=== PATIENT | male | born 1955 | race Caucasian/White ===

== ENCOUNTER 2024-04-21 05:37 | Emergency (ER) | payer MEDICARE, SELFPAY ==
[2024-04-21 05:43] VITALS: BP 126/76; PULSE 67; TEMP 36.4; O2SAT 98; BMI 34.6
--- NOTE | 2024-04-21 05:54 | XR_ITS ---
The [address] [address] Patient Name: GODFREY BLACK MRN: [id number] date: 1955 Sex: M Assigned Patient Location: ED.MAIN Current Patient Location: ER Accession/Order Number: [id number] Exam Date: 04/21/2024 06:13 Report Date: 04/21/2024 06:32 At the request of: RISHABH EDWARDS Procedure: XR chest 1V EXAMINATION: XR chest 1V HISTORY: Intermittent dizziness COMPARISON: No relevant comparison available. FINDINGS: LUNGS: Trace stranding within lateral left lung base. VASCULATURE: No increased pulmonary vasculature. PLEURA: No pneumothorax, effusion, or pleural thickening. CARDIAC: No cardiomegaly or cardiac silhouette abnormality. MEDIASTINUM: No visible mass or adenopathy. BONES: No fracture or visible bone lesion. OTHER: Negative. XR/XR chest 1V IMPRESSION: 1. Trace amount of left basilar atelectasis or possibly infiltrates. Electronically authenticated by: VERNELL LUQUE Date: 04/21/2024 06:32
--- NOTE | 2024-04-21 05:54 | ECG_ITS ---
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
--- NOTE | 2024-04-21 05:54 | CT_ITS ---
The [address] [address] Patient Name: GODFREY BLACK MRN: [id number] date: 1955 Sex: M Assigned Patient Location: ED.MAIN Current Patient Location: ER Accession/Order Number: [id number] Exam Date: 04/21/2024 06:13 Report Date: 04/21/2024 06:33 At the request of: RISHABH EDWARDS Procedure: CT head/brain wo con EXAM: CT head/brain wo con HISTORY: Intermittent dizziness COMPARISON: None. TECHNIQUE: Noncontrast axial CT images through the head were obtained with coronal and sagittal reformats. Dose reduction techniques were achieved by using automated exposure control and/or adjustment of mA and/or kV according to patient size and/or use of iterative reconstruction technique. FINDINGS: There is generalized volume loss. There is decreased attenuation within the periventricular and deep white matter suggestive of chronic microvascular ischemic changes. There is no evidence of intracranial hemorrhage, mass, or midline shift. No extra-axial fluid collection is seen. The mastoid air cells are clear. No acute skull abnormalities are identified. There is mucosal thickening throughout the paranasal sinuses. There are suspected mucosal polyps. CT/CT head/brain wo con IMPRESSION: 1. No acute intracranial abnormality. 2. 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 Electronically authenticated by: Karma BALDWIN Date: 04/21/2024 06:33
--- NOTE | 2024-04-21 05:56 | ED_ITS ---
HPI - Dizziness General Chief Complaint: Dizziness Stated Complaint: DIZZINESS nauseous Time Seen by Provider: 04/21/24 05:43 Source: patient Mode of arrival: walk-in Limitations: no limitations History of Present Illness HPI Narrative: 68-year-old male presents to the emergency department for chief complaint of dizziness. He states that intermittently for 4 days he has been getting 1 hour episodes of lightheadedness. No fever chest pain palpitations or vomiting. Sometimes he gets tinnitus in his left ear, for a few weeks. No localized weakness and he has never had issues like this previously. Related Data Home Medications ?Medication ?Instructions ?Recorded ?Confirmed losartan 100 mg tablet 100 mg PO BID 04/21/24 04/21/24 phentermine 37.5 mg capsule 37.5 mg PO BID 04/21/24 04/21/24 rosuvastatin 20 mg tablet 20 mg PO BID 04/21/24 04/21/24 tamsulosin 0.4 mg capsule 0.4 mg PO BEDTIME 04/21/24 04/21/24 Allergies Allergy/AdvReac Type Severity Reaction Status Date / Time No Known Drug Allergies Allergy Verified 04/21/24 05:45 Review of Systems ROS Narrative A ten point review of systems is negative except as noted above. Exam Narrative Exam Narrative: Nurses note and vital signs reviewed and patient is not hypoxic. General: The patient appears well and in no apparent distress. Patient is resting comfortably on cart. Skin: Warm, dry, no pallor noted. There is no rash noted. Head: Normocephalic, atraumatic Eye: Normal conjunctiva, no drainage Ears, Nose, Mouth, and Throat: oral mucosa is moist. Nares patent. Right TM and external canal are normal. The left TM is normal, there is a moderate amount of cerumen in the left external canal Cardiovascular: Regular Rate and Rhythm Respiratory: Patient is in no distress, no accessory muscle use, lungs are clear to auscultation, no wheezing, rales or rhonchi Back: non-tender GI: Soft and nontender Musculoskeletal: The patient has no evidence of calf tenderness, no pitting edema, symmetrical pulses noted bilaterally Neurological: A&O, normal speech; upper and lower extremity strength intact Psychiatric: Cooperative Constitutional Vital Signs, click to edit/add: Last Vital Signs Temp 97.6 F 04/21/24 05:43 Pulse 67 04/21/24 05:43 Resp 16 04/21/24 05:43 BP 126/76 04/21/24 05:43 Pulse Ox 98 04/21/24 05:43 O2 Del Method Room Air 04/21/24 05:43 Course Vital Signs Vital signs: Vital Signs Temperature 97.6 F 04/21/24 05:43 Pulse Rate 67 04/21/24 05:43 Respiratory Rate 16 04/21/24 05:43 Blood Pressure 126/76 04/21/24 05:43 Pulse Oximetry 98 04/21/24 05:43 Oxygen Delivery Method Room Air 04/21/24 05:43 Temperature 97.6 F 04/21/24 05:43 Pulse Rate 67 04/21/24 05:43 Respiratory Rate 16 04/21/24 05:43 Blood Pressure 126/76 04/21/24 05:43 Pulse Oximetry 98 04/21/24 05:43 Oxygen Delivery Method Room Air 04/21/24 05:43 MDM - Dizziness MDM Narrative Medical decision making narrative: CAT scan shows some mucosal thickening. Blood work is essentially negative. Urinalysis is pending and the patient is signed out to Dr. Carlisle at the change of shift. Differential Diagnosis Differential diagnosis: Likely benign paroxysmal positional vertigo and other (Dehydration, anemia, cardiac dysrhythmia) Lab Data Attestation: I reviewed the patient's lab results. Labs: Lab Results 04/21/24 Range/Units 06:00 WBC 5.1 (4.0-11.0) 10^3/uL RBC 4.77 (4.70-6.10) 10^6/uL Hgb 14.7 (14.0-18.0) g/dL Hct 42.9 (42.0-54.0) % MCV 89.9 (80.0-94.0) fL MCH 30.8 (25.9-34.0) pg MCHC 34.3 (29.9-35.2) g/dL RDW 12.5 (11.0-15.0) % Plt Count 192 (150-450) 10^3/uL MPV 8.9 L (9.5-13.5) fL Neut % (Auto) 55.9 (43.0-75.0) % Lymph % (Auto) 24.3 (20.5-60.0) % [place] % (Auto) 11.4 (1.7-12.0) % Eos % (Auto) 7.4 H (0.9-7.0) % Baso % (Auto) 0.6 (0.2-2.0) % Neut # (Auto) 2.9 (1.4-6.5) 10^3/uL Lymph # (Auto) 1.2 (1.2-3.8) 10^3/uL [place] # (Auto) 0.6 (0.3-0.8) 10^3/uL Eos # (Auto) 0.4 (0.0-0.7) 10^3/uL Baso # (Auto) 0.0 (0.0-0.1) 10^3/uL Abs Immat Gran (auto) 0.02 (0.00-0.03) 10^3/uL Imm/Tot Granulo (auto) 0.4 (0.0-0.5) % Sodium 139 (136-145) mmol/L Potassium 3.9 (3.5-5.1) mmol/L Chloride 103 (98-107) mmol/L Carbon Dioxide 27.0 (21.0-32.0) mmol/L Anion Gap 12.9 BUN 11.0 (7.0-18.0) mg/dL Creatinine 1.03 (0.70-1.30) mg/dL Est GFR ( Amer) >60 (>=60) Est GFR (Non-Af Amer) >60 (>=60) BUN/Creatinine Ratio 10.7 Glucose 102 (74-106) mg/dL Calcium 8.9 (8.5-10.1) mg/dL Troponin I High Sens <4.0 L (4.0-76.1) pg/mL Imaging Data Chest x-ray: Radiologist's impression: ITS Impressions Chest X-Ray 04/21/24 05:54 IMPRESSION: 1. Trace amount of left basilar atelectasis or possibly infiltrates. Electronically authenticated by: VERNELL LUQUE Date: 04/21/2024 06:[address] 04/21/24 05:54 IMPRESSION: 1. No acute intracranial abnormality. 2. 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 Electronically authenticated by: Karma BALDWIN Date: 04/21/2024 06:33 ECG Data Attestation: I personally reviewed and interpreted this ECG as follows: (EKG on my interpretation shows sinus rhythm with a rate of 64.) Discharge Plan Discharge Patient Disposition: Still a Patient
[2024-04-21 06:09] LABS: Basophils Percent Auto 0.6 % (0.2-2.0); Eosinophils Absolute Auto 0.4 10^3/uL (0.0-0.7); Eosinophils Percent Auto 7.4 % (0.9-7.0); Hematocrit 42.9 % (42.0-54.0); Hemoglobin 14.7 g/dL (14.0-18.0); Immature Granulocytes Abs Auto 0.02 10^3/uL (0.00-0.03); Immature Granulocytes Pct Auto 0.4 % (0.0-0.5); Lymphocytes Absolute Auto 1.2 10^3/uL (1.2-3.8); Lymphocytes Percent Auto 24.3 % (20.5-60.0); Mean Corpuscular HGB Conc 34.3 g/dL (29.9-35.2); Mean Corpuscular Hemoglobin 30.8 pg (25.9-34.0); Mean Corpuscular Volume 89.9 fL (80.0-94.0); Mean Platelet Volume 8.9 fL (9.5-13.5); Monocytes Absolute Auto 0.6 10^3/uL (0.3-0.8); Monocytes Percent Auto 11.4 % (1.7-12.0); Neutrophils Absolute Auto 2.9 10^3/uL (1.4-6.5); Neutrophils Percent Auto 55.9 % (43.0-75.0); Platelet Count 192 10^3/uL (150-450); Red Blood Count 4.77 10^6/uL (4.70-6.10); Red Cell Distribution Width 12.5 % (11.0-15.0); White Blood Count 5.1 10^3/uL (4.0-11.0)
[2024-04-21 06:28] LABS: Anion Gap 12.9; BUN Creatinine Ratio 10.7; Calcium 8.9 mg/dL (8.5-10.1); Chloride 103 mmol/L (98-107); Estimated GFR (African America >60 (>=60); Estimated GFR (Non-African Ame >60 (>=60); Glucose 102 mg/dL (74-106); Potassium 3.9 mmol/L (3.5-5.1); Sodium 139 mmol/L (136-145); Troponin I High Sensitivity <4.0 pg/mL (4.0-76.1)
[2024-04-21 06:51] LABS: Bilirubin Urine NEGATIVE (NEGATIVE); Blood Urine NEGATIVE (NEGATIVE); Clarity Urine CLEAR (CLEAR); Color Urine LT. YELLOW (YELLOW); Glucose Urine UA NEGATIVE (NEGATIVE); Ketones Urine NEGATIVE (NEGATIVE); Leukocyte Esterase Urine NEGATIVE (NEGATIVE); Nitrite Urine NEGATIVE (NEGATIVE); Protein Urine NEGATIVE (NEG/TRACE); Specific Gravity Urine <=1.005 (1.005-1.025); Urobilinogen Urine 0.2 EU/dL (0.2-1.0)
[2024-04-21 07:04] LABS: Bacteria Urine NONE SEEN #/HPF (NONE SEEN); Cast Seen? NONE SEEN #/LPF (NONE SEEN); Crystals Seen? None Seen #/HPF (None Seen); Mucus Urine NONE SEEN (NONE SEEN); RBC Urine 0-2 #/HPF (0-2); Squamous Epithelial Cell Urine RARE #/LPF (NONE/RARE); Urine Culture Indicated NO; WBC Urine NONE SEEN #/HPF (NONE SEEN)
[2024-04-21 07:16] VITALS: BP 126/88; PULSE 82; O2SAT 98
== END 2024-04-21 07:17 | disposition home or self-care (01) ==
PROVIDERS: Emergency Medicine; Emergency Provider Student in an Organized Health Care Education/Training Program; PCP Family Medicine
DX: R42 Dizziness and giddiness (principal)
CPT/HCPCS: 36415; 70450; 71045; 80048; 81001; 84484; 85025; 93005; 99285

== ENCOUNTER 2025-01-03 18:42 | Emergency (ER) | payer MEDICARE, SELFPAY ==
[2025-01-03 18:47] VITALS: BP 141/86; PULSE 90; TEMP 37.1; O2SAT 97; BMI 38.0
--- OUTSIDE RECORDS SUMMARY | 2025-01-03 18:57 | XMS_ITS | CCD ---
Author Organization [facility] CliniSyoh Care Team Providers Care Sound Effects Supervisor Name Role Phone ARON MALIN Admitting Unavailable ARON MALIN Attending Unavailable MISC, DOCTOR Consulting Unavailable ARON MALIN Consulting Unavailable FURLONG, HERB G Admitting Unavailable FURLONG, HERB G Attending Unavailable FURLONG, HERB G Admitting Unavailable FURLONG, HERB G Attending Unavailable FURLONG, HERB G Primary Care Unavailable FURLONG, HERB G Admitting Unavailable FURLONG, HERB G Attending Unavailable FURLONG, HERB G Consulting Unavailable TARSHA MOE V Consulting Unavailable FURLONG, HERB G Admitting Unavailable FURLONG, HERB G Attending Unavailable FURLONG, HERB G Primary Care Unavailable FURLONG, HERB Mccarthy Consulting Unavailable TARSHA MOE V Consulting Unavailable FURLONG, HERB Mccarthy Primary Care Unavailable ARELY CISNEROS Admitting Unavailable ARELY CISNEROS Attending Unavailable AGATHA SMILEY Consulting Unavailable POWERS, ADIN S Admitting Unavailable POWERS, ADIN S Attending Unavailable FURLONG, HERB G Primary Care Unavailable Furlong, DO Herb Primary Care Provider [phone] MD Tarsha Gatica Attending Provider Tarsha Gatica Unavailable Furlong, DO Herb Primary Care Provider [phone] MD Tarsha Gatica Attending Provider Tarsha Gatica Attending Unavailable Tarsha Gatica Admitting Unavailable Furlong, Herb Primary Care Unavailable FURLONG, HERB Mccarthy Referring Unavailable FURLONG, HERB Mccarthy Primary Care Unavailable FURLONG, HERB G Attending Unavailable FURLONG, HERB G Referring Unavailable FURLONG, HERB G Primary Care Unavailable Furlong Herb LEDESMA Primary Care Provider Herb De La Rosa MD Primary Care Provider FurHerb gauthier MD Primary Care Provider [phone] LETY NGUYEN Attending Unavailable TIMMIS, BROOKE H Attending Unavailable FURLONG, HERB G Referring Unavailable TIMMIS, BROOKE H Referring Unavailable TIMMIS, BROOKE H Attending Unavailable Furlong DOHerb Primary Care Provider FURLONG, HERB G Referring Unavailable FURLONG, HERB G Primary Care Unavailable FURLONG, HERB G Attending Unavailable FURLONG, HERB G Referring Unavailable FURLONG, HERB G Primary Care Unavailable FURLONG, HERB G Attending Unavailable FURLONG, HERB G Referring Unavailable FURLONG, HERB G Primary Care Unavailable FURLONG, HERB G Attending Unavailable FURLONG, HERB G Referring Unavailable FURLONG, HERB G Primary Care Unavailable FURLONG, HERB G Attending Unavailable FURLONG, HERB G Referring Unavailable FURLONG, HERB G Primary Care Unavailable NIKA MCMAHAN Attending Unavailable FURLONG, HERB G Referring Unavailable FURLONG, HERB G Primary Care Unavailable FURLONG, HERB G Attending Unavailable FURLONG, HERB G Referring Unavailable FURLONG, HERB G Primary Care Unavailable FURLONG, HERB G Attending Unavailable FURLONG, HERB G Referring Unavailable FURLONG, HERB G Primary Care Unavailable Medications Current Medications Medication Drug Class(es) Dates Sig (Normalized) Sig (Original) amoxicillin 875 mg / clavulanate 125 mg oral tablet (4 sources) Penicillin-class Antibacterial Start: 12-20-2024 End: 01-03-2025 take 1 tablet by mouth once in the morning amoxicillin-pot clavulanate (AUGMENTIN) 875-125 mg per tablet Take 1 tablet by mouth in the morning and 1 tablet before bedtime. 12/20/2024 01/03/2025 Active Start: 12-20-2024 End: 01-03-2025 take 1 tablet by mouth in the morning amoxicillin-clavulanate (Augmentin) 875-125 MG tablet Indications: Anosmia Take 1 tablet (875 mg) by mouth in the morning and 1 tablet (875 mg) before bedtime. Do all this for 14 days. 28 tablet 12/20/2024 01/03/2025 Active fluticasone propionate 0.05 mg/actuat metered dose nasal spray (18 sources) Corticosteroid Start: 12-20-2024 End: 12-20-2025 take 2 spray(s) nasal route once daily fluticasone (Flonase) 50 MCG/ACT nasal spray Indications: Anosmia Administer 2 sprays into each nostril Daily Shake gently. Before first use, prime pump. After use, clean tip and replace cap. 48 g 3 12/20/2024 12/20/2025 Active Start: 05-19-2024 take 2 spray(s) nasa l route in the morning fluticasone propionate (FLONASE) 50 mcg/actuation nasal spray Administer 2 sprays into each nostril in the morning. 16 g 5 05/19/2024 Active Start: 05-19-2024 End: 12-20-2024 take 2 spray(s) nasal route in the morning fluticasone (Flonase) 50 MCG/ACT nasal spray Administer 2 sprays into affected nostril(s) in the morning. 05/19/2024 12/20/2024 Discontinued (Therapy completed) hydroCHLOROthiazide 25 mg / triamterene 37.5 mg oral capsule (15 sources) Potassium-sparing Diuretic, Thiazide Diuretic Start: 05-19-2024 take 1 capsule by mouth in the morning triamterene-hydroCHLOROthiazide (Dyazide) 37.5-25 MG capsule Take 1 capsule by mouth in the morning. 05/19/2024 Active Start: 05-19-2024 End: 11-24-2024 take 1 capsule by mouth once in the morning triamterene-hydroCHLOROthiazide (DYAZIDE ) 37.5-25 mg per capsule Take 1 capsule by mouth in the morning. 30 capsule 5 05/19/2024 11/24/2024 Discontinued (Patient Stopped On Own) losartan potassium 100 mg oral tablet (20 sources) Angiotensin 2 Receptor Lyric Start: 09-08-2023 End: 10-10-2024 take 1 tablet by mouth once daily losartan (COZAAR) 100 mg tablet Indications: Essential (primary) hypertension TAKE 1 TABLET BY MOUTH DAILY 90 tablet 1 10/10/2024 Active Losartan Potassi um 100 MG Oral for 30 Active meclizine hydrochloride 25 mg oral tablet (3 sources) Antiemetic Start: 11-29-2024 End: 12-09-2024 meclizine (ANTIVERT) 25 mg tablet Take 1 tablet (25 mg total) by mouth. 11/29/2024 Active phentermine hydrochloride 37.5 mg oral capsule (20 sources) Sympathomimetic Amine Anorectic Start: 11-24-2024 End: 12-22-2024 take 1 capsule by mouth once daily before breakfast phentermine 37.5 MG capsule Indications: Morbid obesity ([facility]) Take 1 capsule (37.5 mg total) by mouth every morning before breakfast. 30 capsule 12/22/2024 Active Start: 05-19-2024 End: 12-20-2024 take 35-35.9 capsules by mouth once daily in the morning phentermine 15 MG capsule Indications: Class 2 severe obesity due to excess calories with serious comorbidity and body mass index (BMI) of 35.0 to 35.9 in adult ([facility]) Take 1 capsule (15 mg total) by mouth every morning. 30 capsule 05/19/2024 11/24/2024 Discontinued (Therapy completed) Start: 04-25-2024 End: 05-19-2024 take 36-36.9 capsules by mouth once daily before breakfast phentermine 37.5 MG capsule Indications: Class 2 severe obesity due to excess calories with serious comorbidity and body mass index (BMI) of 36.0 to 36.9 in adult ([facility]) Take 1 capsule (37.5 mg total) by mouth every morning before breakfast. 30 capsule 04/25/2024 05/19/2024 Discontinued (Dose adjustment) Start: 07-09-2023 End: 04-07-2024 take 38-38.9 capsules by mouth once daily before breakfast phentermine 37.5 MG capsule Indications: Class 2 severe obesity due to excess calories with serious comorbidity and body mass index (BMI) of 38.0 to 38.9 in adult ([facility]) Take 1 capsule (37.5 mg total) by mouth every morning before breakfast. 30 capsule 03/07/2024 Active predniSONE 20 mg oral tablet (4 sources) Start: 12-20-2024 End: 12-26-2024 take 1 tablet by mouth in the morning, then take 1 tablet by mouth at bedtime predniSONE (DELTASONE) 20 mg tablet Take 1 tablet (20 mg total) by mouth in the morning and 1 tablet (20 mg total) before bedtime. 12/20/2024 12/26/2024 Active rosuvastatin calcium 20 mg oral tablet (20 sources) HMG-CoA Reductase Inhibitor Start: 02-27-2023 End: 07-20-2024 take 1 tablet by mouth once daily in the morning rosuvastatin (CRESTOR) 20 mg tablet TAKE 1 TABLET BY MOUTH EVERY MORNING 90 tablet 1 07/20/2024 Active Rosuvastatin Evan cium 20 MG Oral for 30 Active sildenafil 100 mg oral tablet (20 sources) Phosphodiesterase 5 Inhibitor Start: 06-09-2023 End: 12-20-2024 sildenafiL (VIAGRA) 100 mg tablet Indications: Erectile dysfunction due to arterial insufficiency Take 1 tablet (100 mg total) by mouth as needed for erectile dysfunction. 10 tablet 5 03/31/2024 Active tamsulosin hydrochloride 0.4 mg oral capsule (20 sources) alpha-Adrenergic Lyric Start: 06-15-2024 take 1 capsule by mouth every twenty-four hours at bedtime tamsulosin (Flomax) 0.4 MG 24 hr capsule Take 1 capsule by mouth at bedtime 06/15/2024 Active Start: 06-23-2023 End: 06-15-2024 take 1 capsule by mouth once daily tamsulosin (FLOMAX) 0.4 mg capsule take 1 capsule by mouth nightly 90 capsule 3 06/15/2024 Active Tamsulosin HCl A ctive Completed/Discontinued Medications Medication Drug Class(es) Dates Sig (Normalized) Sig (Original) cyclobenzaprine hydrochloride 10 mg oral tablet (2 sources) Muscle Relaxant Cyclobenzaprine HCl 10 MG Oral for 30 Not-Taking ketoconazole 20 mg/ml topical cream (7 sources) Azole Antifungal Start: 06-22-2023 End: 02-04-2024 ketoconazole (NIZORAL) 2 % cream Indications: Tinea corporis Apply topically daily. 30 g 06/22/2023 02/04/2024 Discontinued (Therapy completed) 1.5 ml leuprolide acetate 30 mg/ml prefilled syringe (7 sources) Gonadotropin Releasing Hormone Receptor Agonist Start: 08-26-2022 End: 02-04-2024 leuprolide (LUPRON) injection 45 mg melatonin 3 mg oral capsule (9 sources) Start: 02-04-2024 End: 05-19-2024 take 1 capsule by mouth once daily melatonin 3 mg capsule Take 3 mg by mouth nightly. 02/04/2024 05/19/2024 Discontinued (Therapy completed) naproxen 500 mg oral tablet (2 sources) Nonsteroidal Anti-inflammatory Drug Naproxen 500 MG Oral for 30 Not-Taking suvorexant 10 mg oral tablet (7 sources) Orexin Receptor Antagonist Start: 07-09-2023 End: 02-04-2024 take 1 tablet by mouth once daily suvorexant 10 mg tablet Indications: Insomnia, unspecified type Take 10 mg by mouth nightly. 30 tablet 2 07/09/2023 02/04/2024 Discontinued (Ineffective) traZODone hydrochloride 50 mg oral tablet (7 sources) Serotonin Reuptake Inhibitor Start: 07-15-2023 End: 02-04-2024 take 1 tablet by mouth once daily traZODone (DESYREL) 50 mg tablet Take 1 tablet (50 mg total) by mouth nightly. 30 tablet 1 07/15/2023 02/04/2024 Discontinued Triamcinolone (2 sources) Corticosteroid Start: 06-11-2020 Kenalog -40 mg May, 40 mg Problems Active Problems Problem Classification Problem Date Documented Date Episodic/Chronic Cancer of prostate (20 sources) Malignant tumor of prostate; Translations: [Malignant neoplasm of prostate] Onset: 07-09-2021 05-24-2024 Chronic Conditions associated with dizziness or vertigo (20 sources) Meniere's disease; Translations: [Meniere's disease, unspecified ear] Onset: 02-10-2021 06-17-2022 Chronic Conditions associated with dizziness or vertigo (5 sources) Dizziness and giddiness; Translations: [Dizziness] Onset: 06-28-2019 11-11-2024 Episodic Disorders of lipid metabolism (20 sources) Pure hypercholesterolemia, unspecified; Translations: [Hypercholesterolemia ] Onset: 07-10-2019 06-17-2022 Chronic Essential hypertension (20 sources) Essential hypertension; Translations: [Essential (primary) hypertension] Onset: 07-10-2019 02-04-2024 Chronic Osteoarthritis (20 sources) Arthritis; Translations: [Unspecified osteoarthritis, unspecified site] Onset: 06-17-2022 06-17-2022 Chronic Other aftercare (1 source) Other detention (current) drug therapy; Translations: [[employer] CURRENT DRUG THERAPY] Onset: 11-16-2019 Episodic Other connective tissue disease (4 sources) Pain in left leg; Translations: [PAIN IN LEFT LEG] Onset: 10-24-2019 Episodic Other connective tissue disease (2 sources) Enthesopathy of hip region; Translations: [Trochanteric bursitis, left hip] Episodic Other ear and sense organ disorders (20 sources) Sensorineural hearing loss, bilateral; Translations: [Sensorineural hearing loss, bilateral] Onset: 06-17-2022 09-12-2024 Chronic Other ear and sense organ disorders (20 sources) Bilateral hearing loss; Translations: [Sensorineural hearing loss, unilateral, left ear, with restricted hearing on the contralateral side] Onset: 06-17-2022 06-17-2022 Chronic Other ear and sense organ disorders (1 source) Asymmetrical sensorineural hearing loss; Translations: [Sensorineural hearing loss, bilateral] 11-11-2024 Chronic Other ear and sense organ disorders (7 sources) Bilateral tinnitus; Translations: [Tinnitus, bilateral] Onset: 11-11-2024 11-11-2024 Episodic Other male genital disorders (20 sources) Male erectile dysfunction, unspecified; Translations: [Impotence of organic origin] Onset: 05-19-2023 05-19-2023 Chronic Other male genital disorders (2 sources) Erectile dysfunction co-occurrent and due to arterial insufficiency; Translations: [Erectile dysfunction due to arterial insufficiency] 02-04-2024 Chronic Other male genital disorders (1 source) Erectile dysfunction due to arterial insufficiency; Translations: [Erectile dysfunction due to arterial insufficiency] Onset: 05-19-2023 Chronic Other nervous system disorders (20 sources) Chronic pain; Translations: [Other chronic pain] Onset: 06-17-2022 06-17-2022 Chronic Other nervous system disorders (2 sources) Circadian rhythm sleep disorder of shift work type; Translations: [Circadian rhythm sleep disorder, shift work type] Chronic Other nervous system disorders (2 sources) Circadian rhythm sleep disorder, shift work type Onset: 12-24-2021 Resolved: 12-24-2021 Chronic Other nervous system disorders (2 sources) Loss of sense of smell; Translations: [Anosmia] 12-20-2024 Episodic Other non-traumatic joint disorders (1 source) Pain in unspecified hip; Translations: [PAIN IN UNSPECIFIED HIP] Onset: 10-27-2019 Episodic Other non-traumatic joint disorders (1 source) Pain in left hip; Translations: [PAIN IN LEFT HIP] Onset: 08-31-2019 Episodic Other nutritional; endocrine; and metabolic disorders (2 sources) Body mass index 40+ - severely obese; Translations: [Body mass index (BMI) 40.0-44.9, adult] Chronic Other nutritional; endocrine; and metabolic disorders (2 sources) Body mass index 30+ - obesity; Translations: [Body mass index (BMI) 39.0-39.9, adult] Chronic Other nutritional; endocrine; and metabolic disorders (2 sources) Body mass index (BMI) 40.0-44.9, adult Onset: 12-24-2021 Resolved: 12-24-2021 Chronic Other nutritional; endocrine; and metabolic disorders (20 sources) Obesity; Translations: [Obesity, unspecified] Onset: 08-31-2019 06-17-2022 Chronic Other nutritional; endocrine; and metabolic disorders (5 sources) Severe obesity; Translations: [Morbid (severe) obesity due to excess calories] 02-04-2024 Chronic Other nutritional; endocrine; and metabolic disorders (2 sources) Morbid obesity; Translations: [Morbid (severe) obesity due to excess calories] 11-24-2024 Chronic Other nutritional; endocrine; and metabolic disorders (1 source) Body mass index (BMI) 35.0-35.9, adult; Translations: [Body mass index (BMI) 35.0-35.9, adult] Onset: 06-17-2022 Chronic Other nutritional; endocrine; and metabolic disorders (1 source) Morbid (severe) obesity due to excess calories; Translations: [Morbid (severe) obesity due to excess calories] Onset: 06-17-2022 Chronic Other nutritional; endocrine; and metabolic disorders (1 source) Body mass index (BMI) 38.0-38.9, adult; Translations: [Body mass index (BMI) 38.0-38.9, adult] Onset: 06-17-2022 Chronic Residual codes; unclassified (20 sources) Obstructive sleep apnea syndrome; Translations: [Obstructive sleep apnea (adult) (pediatric)] Onset: 03-01-2021 06-17-2022 Chronic Residual codes; unclassified (2 sources) Sleep apnea; Translations: [Sleep apnea, unspecified] Chronic Residual codes; unclassified (2 sources) Obstructive sleep apnea (adult) (pediatric) Onset: 12-24-2021 Resolved: 12-24-2021 Chronic Residual codes; unclassified (1 source) Obstructive sleep apnea (adult)(pediatric); Translations: [Obstructive sleep apnea (adult) (pediatric)] Onset: 12-30-2022 Chronic Spondylosis; intervertebral disc disorders; other back problems (20 sources) Spondylosis without myelopathy or radiculopathy, lumbar region; Translations: [Degeneration of lumbar intervertebral disc] Onset: 10-27-2019 06-17-2022 Chronic Unclassified (1 source) Weight Check Onset: 05-19-2024 Unclassified (1 source) medicare annual wellness Onset: 01-05-2024 Past or Other Problems Problem Classification Problem Date Documented Da te Episodic/Chronic Diabetes mellitus without complication (20 sources) Impaired fasting glucose; Translations: [Impaired fasting glycemia] Onset: 12-12-2021 06-17-2022 Episodic Mood disorders (20 sources) Mood disorders Onset: 03-07-2024 Resolved: 04-07-2024 04-07-2024 Nausea and vomiting (1 source) Nausea; Translations: [NAUSEA] Onset: 06-30-2019 Episodic Nonmalignant breast conditions (20 sources) Breast tenderness; Translations: [Mastodynia] Onset: 02-04-2024 02-04-2024 Episodic Other acquired deformities (20 sources) Leg length inequality; Translations: [Unequal limb length (acquired), unspecified site] Onset: 11-03-2019 06-17-2022 Episodic Other connective tissue disease (20 sources) Bursitis of hip; Translations: [Trochanteric bursitis, unspecified hip] Onset: 08-31-2019 06-17-2022 Episodic Other ear and sense organ disorders (20 sources) Tinnitus of left ear; Translations: [Tinnitus, left ear] Onset: 06-17-2022 06-17-2022 Episodic Other nutritional; endocrine; and metabolic disorders (1 source) Weight loss Onset: 04-07-2024 Episodic Other screening for suspected conditions (not mental disorders or infectious disease) (20 sources) Encounter for screening for malignant neoplasm of prostate; Translations: [Patient encounter status] Onset: 12-03-2020 02-06-2021 Episodic Residual codes; unclassified (20 sources) Insomnia; Translations: [Insomnia, unspecified] Onset: 07-09-2023 07-09-2023 Episodic Screening and history of mental health and substance abuse codes (20 sources) Personal history of nicotine dependence; Translations: [Ex-cigarette smoker] Onset: 06-30-2019 12-16-2022 Episodic Spondylosis; intervertebral disc disorders; other back problems (20 sources) Low back pain; Translations: [Sacrococcygeal disorders, not elsewhere classified] Onset: 11-13-2019 06-17-2022 Episodic Results Test Name Value Interpretation Reference Range Facility MR BRAIN W AND WO CONTRAST ( IACS)on 12-12-2024 MR BRAIN W AND WO CONTRAST (IACS) MR BRAIN W AND WO CONTRAST (IACS) INDICATION: Hearing loss left ear for 10 years COMPARISON: None. TECHNIQUE: Sagittal T1, axial T2, axial T2* GRE, axial FLAIR, axial DWI sequences of the brain were acquired. Additional high resolution images through the internal auditory canals were obtained. 10 cc Vueway FINDINGS: No diffusion abnormality is seen. CEREBRUM: Normal morphology and signal intensity. CEREBELLUM: Normal. BRAINSTEM: Normal. VENTRICLES AND EXTRA-AXIAL SPACES: The ventricles are normal in size and symmetric. There are no extra-axial fluid collections. MAJOR ARTERIES/DURAL SINUSES: Patent. SKULL/SCALP: Normal. PARANASAL SINUSES AND MASTOID AIR CELLS: There is scattered mucoperiosteal thickening in all of the paranasal sinuses. There are postop changes from uncinate ectomy on the left as well as partial ethmoidectomies. Polypoid mucosal changes are noted. OTHER: Internal auditory canals: The cerebellopontine angles appear to be normal. The 7th and 8th cranial nerves are unremarkable in appearance with no enhancing lesion visible. The inner ear structures are symmetric in appearance by MRI. There is no visible middle ear or mastoid air cell fluid. IMPRESSION: 1. No findings to explain reported hearing loss on the left. 2. Unremarkable MRI of the brain. 3. Paranasal sinus mucosal thickening and polypoid changes. Extensive postop changes from sinus surgery. Dictated on: 12/12/2024 3:45 PM This report has been electronically signed and approved by the interpreting Radiologist. Normal Not Available Comment on above: Order Comment: MRI B rain & IAC W/WO at [facility]. Please call patient to schedule. Auditory function testson Right Ear: Mild to moderate sensorineural hearing loss above 2K Hz Left Ear: Mild to severe sensorineural hearing loss [facility] LOW DOSE LUNG SCREENINGon 02-13-2024 CT LOW DOSE LUNG SCREENING CT LOW DOSE LUNG SCREENING CLINICAL INFORMATION: Screening visit: Personal history of tobacco use/personal history of nicotine dependence. Lung cancer screening. The patient is a prior smoker. The patient has a 35 pack year history of smoking. COMPARISON: 01/26/2023 TECHNIQUE: Low dose CT chest performed without contrast with coronal and sagittal and maximum intensity projection reconstructed images. Maximum intensity projection images generated to increase the sensitivity of pulmonary nodule detection. All CT scans at this facility use dose modulation, iterative reconstruction, and/or weight based dosing when appropriate to reduce radiation dose to as low as reasonably achievable. Automated exposure control was utilized. Computer aided detection for pulmonary nodules?was performed utilizing CellControl software.? FINDINGS: Diagnostic quality: Satisfactory Lung nodules: Stable 3 mm lung nodule left upper lobe image 37. Stable fissural 4 mm lung nodule minor fissure image 66. Lungs and pleural spaces: Mild paraseptal emphysema. Mediastinum: Minimal calcified plaque in the thoracic aorta. Heart size: Normal Coronary calcification: Moderate Pericardial effusion: None Other findings: IMPRESSION: Lung Rads Category: 2- Benign appearance or behavior Recommendation: CT Low Dose Lung Screening 1 year Finalized by Rusty Bruce MD on 02/13/2024 11:58 AM 2 LDCT 1 Yr Normal [facility] COMPREHENSIVE METABOLIC PANE Kiran 02-02-2024 Albumin [Mass/Vol] 4.1 g/dL Normal 3.2-5.3 [facility] Comment on above: Performed By: #### C MERRY, 05848-8, 2857-1, HA1C #### [facility] ([id number]) [address], [address] [place] [address] ALP [Catalytic activity/Vol] 80 U/L Normal 39-130 [facility] Comment on above: Performed By: #### C MERRY, 49533-8, 2857-1, HA1C #### [facility] ([id number]) [address], [address] [place] [address] ALT [Catalytic activity/Vol] 18 U/L Normal 0-40 [facility] Comment on above: Performed By: #### C MERRY, 03553-4, 2857-1, HA1C #### [facility] ([id number]) [address], [address] [place] [address] Anion gap [Moles/Vol] 9 mmol/L Normal 5-15 [facility] Comment on above: Performed By: #### C MERRY, 99734-4, 2857-1, HA1C #### [facility] ([id number]) [address], [address] [place] [address] AST [Catalytic activity/Vol] 18 U/L Normal 0-41 [facility] Comment on above: Performed By: #### C MERRY, 81412-3, 2857-1, HA1C #### [facility] ([id number]) [address], [address] [place] [address] Bilirubin [Mass/Vol] 0.8 mg/dL Normal 0.3-1.2 [facility] Comment on above: Performed By: #### C MERRY, 48802-2, 2857-1, KASIA1C #### [facility] ([id number]) [address], [address] [place] [address] Calcium [Mass/Vol] 9.0 mg/dL Normal 8.5-10.5 [facility] Comment on above: Performed By: #### C MERRY, 74469-0, 2857-1, KASIA1C #### [facility] ([id number]) [address], [address] [place] [address] Chloride [Moles/Vol] 106 mmol/L Normal 98-109 [facility] Comment on above: Performed By: #### C MERRY, 95624-7, 2857-1, HA1C #### [facility] ([id number]) [address] [place] [address] CO2 [Moles/Vol] 24 mmol/L Normal 22-32 [facility] Comment on above: Performed By: #### C MERRY, 60077-7, 2857-, HA1C #### [facility] ([id number]) [address], [facility] [address] [place] [address] Creatinine [Mass/Vol] 0.96 mg/dL Normal 0.60-1.30 [facility] Comment on above: Result Comment: METH OD TRACEABLE TO IDMS STANDARD Performed By: #### C MERRY, 26364-3, 2857-, KASIA1C #### [facility] ([id number]) [address] [address] [address] GFR/1.73 sq M.predicted among non-blacks MDRD (S/P/Bld) [Vol rate/Area] 87 mL/min/{1.73_m2} Normal >59 [facility] Comment on above: Result Comment: Reported eGFR is based on the CKD-EPI 2020 equation that does not use a race coefficient. Performed By: #### C MERRY, 78565-2, 2857-1, KASIA1C #### [facility] ([id number]) [address] [address] [place] [address] Glucose [Mass/Vol] 108 mg/dL High 65-99 [facility] Comment on above: Performed By: #### C MERRY, 80255-9, 2857-1, KASIA1C #### [facility] ([id number]) [address], [facility] [address] [place] [address] Potassium [Moles/Vol] 4.1 mmol/L Normal 3.5-5.0 [facility] Comment on above: Performed By: #### C MERRY, 36956-1, 2857-1, KASIA1C #### [facility] ([id number]) [address], [address] [place] [address] Protein [Mass/Vol] 7.0 g/dL Normal 6.0-8.0 [facility] Comment on above: Performed By: #### C MERRY, 45382-7, 2857-1, HA1C #### [facility] ([id number]) [address], [facility] [address] [place] [address] Sodium [Moles/Vol] 139 mmol/L Normal 134-146 [facility] Comment on above: Performed By: #### Carolina SOUSA, 16466-9, 2857-1, HA1C #### [facility] ([id number]) [address], [facility] [address] [place] [address] Urea nitrogen [Mass/Vol] 18 mg/dL Normal 5-27 [facility] Comment on above: Performed By: #### Carolina SOUSA, 84656-0, 2857-1, HA1C #### [facility] ([id number]) [address], [facility] [address] [place] [address] HGB A1C (GLYCO-HGB)on 2023 Glucose [Mass/Vol] 103 mg/dL Normal [facility] Comment on above: Performed By: #### Carolina SOUSA, 95054-7, 2857-1, HA1C #### [facility] ([id number]) [address], [facility] [address] [place] [address] HbA1c (Bld) [Mass fraction] 5.2 % Normal 4.4-5.6 [facility] Comment on above: Result Comment: NOTE ADA Guidelines Result HgbA1c Normal : less than 5.7 % Prediabetes : 5.7 % to 6.4 % Diabetes : > 6.4 % Use with caution in patients with abnormal hemoglobin variants as the half-life of red blood cells and in vivo glycation rates are affected. Performed By: #### Carolina SOUSA, 65485-6, 2857-1, KASIA1C #### [facility] ([id number]) [address], [address] [place] [address] Lipid 1996 panelon 4 Cholesterol [Mass/Vol] 136 mg/dL Low 150-200 [facility] Comment on above: Performed By: #### Carolina SOUSA, 73507-0, 2856-1, KASIA1C #### [facility] ([id number]) [address], [address] [place] [address] Cholesterol in HDL [Mass/Vol] 52 mg/dL Normal >39 [facility] Comment on above: Result Comment: HDL <40 mg/dL - High Risk HDL > or = 40mg/dL- Desirable HDL >60 mg/dL - Negative Risk Performed By: ###[place], [address]-6, 285-1, HA1C #### [facility] ([id number]) [address], [address] [place] [address] Cholesterol in LDL [Mass/Vol] 62 mg/dL Normal <130 [facility] Comment on above: Result Comment: LDL <100 mg/dL - Desirable LDL >160 mg/dL - High Risk Performed By: ###[place], [address]-1, 285-1, HA1C #### [facility] ([id number]) [address], [address] [place] [address] Cholesterol in VLDL [Mass/Vol] 22 mg/dL Normal 0-30 [facility] Comment on above: Performed By: ###[place], [address]-1, 285-1, HA1C #### [facility] ([id number]) [address], [address] [place] [address] CHOLESTEROL:HDL 2.6 Normal 1.0-5.0 [facility] Comment on above: Performed By: #### Carolina SOUSA, 02922-7, 2857-1, HA1C #### [facility] ([id number]) [address], [address] [place] [address] Triglyceride [Mass/Vol] 110 mg/dL Normal 27-150 [facility] Comment on above: Performed By: #### Carolina SOUSA, 98112-0, 2857-1, HA1C #### [facility] ([id number]) [address], [address] [place] [address] Prostate specific Ag [Mass/V ol]on 02-02-2024 PSA SCREEN 0.76 ng/mL Normal 0.00-4.00 [facility] Comment on above: Result Comment: The method used for this test is Juanita Responsa DXI chemiluminescent immunoassay. Values obtained by different assay methods cannot be used interchangeably. Performed By: #### Carolina SOUSA, 14345-2, 2857-1, HA1C #### [facility] ([id number]) [address], [address] [place] [address] COMPREHENSIVE METABOLIC PANE Kiran 12-12-2021 Albumin [Mass/Vol] 4.1 g/dL Normal 3.6-5.1 [facility] Comment on above: Performed By: #### 7 600, 36538 #### [facility] [address], [address] [place] [id number] [employer] President [employer]: Anibal Stein MD Albumin/Globulin [Mass ratio] 1.7 {ratio} Normal 1.0-2.5 [facility] Comment on above: Performed By: #### 7 600, 37245 #### [facility] [address], [address] [place] [id number] [employer] President [employer]: Anibal Stein MD ALP [Catalytic activity/Vol] 90 U/L Normal 35-144 [facility] Comment on above: Performed By: #### 7 600, 67947 #### [facility] of [place] [address] [employer]: Anibal Stein MD ALT [Catalytic activity/Vol] 19 U/L Normal 9-46 [facility] Comment on above: Performed By: #### 7 600, 99612 #### [facility] of [address], [address] [place] [address] [employer] President [employer]: Anibal Stein MD AST [Catalytic activity/Vol] 19 U/L Normal 10-35 [facility] Comment on above: Performed By: #### 7 600, 85709 #### [facility] [place] [address] [employer]: Anibal Stein MD Bilirubin [Mass/Vol] 0.9 mg/dL Normal 0.2-1.2 [facility] Comment on above: Performed By: #### 7 600, 10528 #### [facility] [place] [address] [employer]: Anibal Stein MD BUN/CREATININE RATIO NOT APPLICABLE Normal 6-22 [facility] Comment on above: Performed By: #### 7 600, 18978 #### [facility] [place] [address] [employer]: Anibal Stein MD Calcium [Mass/Vol] 8.9 mg/dL Normal 8.6-10.3 [facility] Comment on above: Performed By: #### 7 600, 04179 #### [facility] [place] [address] [employer]: Anibal Stein MD Chloride [Moles/Vol] 104 mmol/L Normal 98-110 [facility] Comment on above: Performed By: #### 7 600, 75226 #### [facility] [place] [address] [employer]: Anibal Stein MD CO2 [Moles/Vol] 26 mmol/L Normal 20-32 [facility] Comment on above: Performed By: #### 7 600, 63044 #### [facility] [place] [address] [employer]: Anibal Stein MD Creatinine [Mass/Vol] 1.07 mg/dL Normal 0.70-1.25 [facility] Comment on above: Result Comment: For patients >49 years of age, the reference limit for Creatinine is approximately 13% higher for people identified as -British. Performed By: #### 7 600, 74044 #### [facility] [address], [address] [place] [address] [employer]: Anibal Stein MD eGFR NON-AFR. MACEDONIAN 73 mL/min/1.73m2 Normal > OR = 60 [facility] Comment on above: Performed By: #### 7 600, 86707 #### [facility] [address], [address] [place] [address] [employer]: Anibal Stein MD GFR/1.73 sq M.predicted among blacks MDRD (S/P/Bld) [Vol rate/Area] 85 mL/min/{1.73_m2} Normal > OR = 60 [facility] Comment on above: Performed By: #### 7 600, 56084 #### [facility] [place] [address] [employer]: Anibal Stein MD Globulin (S) [Mass/Vol] 2.4 g/dL Normal 1.9-3.7 [facility] Comment on above: Performed By: #### 7 600, 71253 #### [facility] [place] [address] [employer]: Anibal Stein MD Glucose [Mass/Vol] 104 mg/dL High 65-99 [facility] Comment on above: Result Comment: Fasting reference interval For someone without known diabetes, a glucose value between 100 and 125 mg/dL is consistent with prediabetes and should be confirmed with a follow-up test. Performed By: #### 7 600, 30915 #### [facility] of [address], [address] [place] [address] [employer]: Anibal Stein MD Potassium [Moles/Vol] 3.9 mmol/L Normal 3.5-5.3 [facility] Comment on above: Performed By: #### 7 600, 44074 #### [facility] of [address], [address] [place] [address] [employer]: Anibal Stein MD Protein [Mass/Vol] 6.5 g/dL Normal 6.1-8.1 [facility] Comment on above: Performed By: #### 7 600, 56539 #### [facility] of [address], [address] [place] [address] [employer]: Anibal Stein MD Sodium [Moles/Vol] 136 mmol/L Normal 135-146 [facility] Comment on above: Performed By: #### 7 600, 98941 #### [facility] of [address], [address] [place] [address] [employer]: Anibal Stein MD Urea nitrogen [Mass/Vol] 15 mg/dL Normal 7-25 [facility] Comment on above: Performed By: #### 7 600, 07978 #### [facility] [place] [address] [employer]: Anibal Stein MD LIPID PANEL, [facility] 11-20 Cholesterol [Mass/Vol] 158 mg/dL Normal <200 [facility] Comment on above: Order Comment: FASTI NG:YES FASTING: YES Performed By: #### 7 600, 10544 #### [facility] of [address], [address] [place] [address] [employer]: Anibal Stein MD Cholesterol in HDL [Mass/Vol] 43 mg/dL Normal > OR = 40 [facility] Comment on above: Order Comment: FASTI NG:YES FASTING: YES Performed By: #### 7 600, 37400 #### [facility] of [address], [address] [place] [address] [employer]: Anibal Stein MD Cholesterol in LDL [Mass/Vol] 94 mg/dL Normal [facility] Comment on above: Order Comment: FASTI NG:YES FASTING: YES Result Comment: Refe rence range: <100 Desirable range <100 mg/dL for primary prevention; <70 mg/dL for patients with CHD or diabetic patients with > or = 2 CHD risk factors. LDL-C is now calculated using the Brett calculation, which is a validated novel method providing better accuracy than the Friedewald equation in the estimation of LDL-C. Ken DOW et al. JARROD. 2013;310(19): 3182-7718 (http://education.Trendr.[employer]/faq/HYV542) Performed By: #### 7 600, 54550 #### [facility] [address], [address] [place] [address] [employer] President [employer]: Anibal Stein MD Cholesterol.total/ Cholesterol in HDL [Mass ratio] 3.7 {ratio} Normal <5.0 [facility] Comment on above: Order Comment: FASTI NG:YES FASTING: YES Performed By: #### 7 600, 32011 #### [facility] [address], [address] [place] [address] [employer] President [employer]: Anibal Stein MD NON HDL CHOLESTEROL 115 mg/dL (calc) Normal <130 [facility] Comment on above: Order Comment: FASTI NG:YES FASTING: YES Result Comment: For patients with diabetes plus 1 major ASCVD risk factor, treating to a non-HDL-C goal of <100 mg/dL (LDL-C of <70 mg/dL) is considered a therapeutic option. Performed By: #### 7 600, 00444 #### [facility] [address], [address] [place] [address] [employer]: Anibal Stein MD Triglyceride [Mass/Vol] 118 mg/dL Normal <150 [facility] Comment on above: Order Comment: FASTI NG:YES FASTING: YES Performed By: #### 7 600, 82947 #### [facility] [address], [address] [place] [address] [employer] President [employer] Development: Anibal Stein MD Formson 05-21-2021 Forms [id number] .00CD:127 Normal [facility] Physician Referralon 021 Physician Referral [id number] 1.00CD:127 Normal [facility] XR HIP LT 2-3V W PELVISon XR HIP LT 2-3V W PELVIS Patient: GODFREY QUINTERO Exam Date: 10/24/2019 : 1955 Gender:M Ordering : DR HERB DE LA ROSA Admission #: [id number] Family : Order #: [id number] CLICK HERE TO VIEW EXAM RADIOLOGY REPORT PROCEDURE: RADIOGRAPH HIP LEFT 2-3 VIEWS WITH PELVIS COMPARISON: XR HIP LT 2-3V W PELVIS, 08/25/2019. INDICATIONS: Chronic left hip pain for 6 years without injury, pain radiates into left leg FINDINGS: BONES: No acute fracture or dislocation. Contour deformity and screws from remote trauma partially visualized in the proximal femoral diaphysis. Degenerative spondylosis of the spine SOFT TISSUES: No visible soft tissue swelling or radiopaque foreign body. OTHER: Negative. CONCLUSION: 1. No acute abnormality Dictated by: Tarsha Moe M.D. on 10/24/2019 at 14:43 Approved by: Tarsha Moe M.D. on 10/24/2019 at 14:44 Normal [facility] XR L-SPINE 2 - 3 VIEWSon XR L-SPINE 2 - 3 VIEWS Patient: GODFREY QUINTERO Exam Date: 10/24/2019 : 1955 Gender:M Ordering : DR HERB DE LA ROSA Admission #: [id number] Family : Order #: [id number] CLICK HERE TO VIEW EXAM RADIOLOGY REPORT PROCEDURE: RADIOGRAPH L-SPINE 2-3 VIEWS COMPARISON: XR L-SPINE 2 - 3 VIEWS, 08/25/2019. INDICATIONS: Chronic lower lumbar spine pain for 6 years without injury, pain radiates into left leg FINDINGS: BONES: Moderate to severe degenerative spondylosis and facet osteoarthritis most significant L2 through S1. Rotatory levo curvature centered at L3. DISC SPACES: Multilevel disc space narrowing with vacuum discs and endplate sclerosis PARASPINOUS: Negative. No paraspinous abnormality is seen. OTHER: Extensive atherosclerosis CONCLUSION: 1. Stable exam with moderate to severe degenerative changes Dictated by: Tarsha Moe M.D. on 10/24/2019 at 14:41 Approved by: Tarsha Moe M.D. on 10/24/2019 at 14:43 Normal [facility] XR HIP LT 2-3V W PELVISon XR HIP LT 2-3V W PELVIS Patient: GODFREY QUINTERO Exam Date: 08/25/2019 : 1955 Gender:M Ordering : DR HERB DE LA ROSA Admission #: [id number] Family : Order #: [id number] CLICK HERE TO VIEW EXAM RADIOLOGY REPORT PROCEDURE: RADIOGRAPH HIP LEFT 2-3 VIEWS WITH PELVIS COMPARISON: None. INDICATIONS: Left hip pain FINDINGS: BONES: No fracture, acute abnormality, or significant arthropathy. SOFT TISSUES: No visible soft tissue swelling or radiopaque foreign body. OTHER: Negative. CONCLUSION: No acute disease. Dictated by: Tarsha Moe M.D. on 08/25/2019 at 14:38 Approved by: Trasha Moe M.D. on 08/25/2019 at 14:39 Normal [facility] XR L-SPINE 2 - 3 VIEWSon XR L-SPINE 2 - 3 VIEWS Patient: GODFREY QUINTERO Exam Date: 08/25/2019 : 1955 Gender:M Ordering : DR HERB DE LA ROSA Admission #: [id number] Family : Order #: [id number] CLICK HERE TO VIEW EXAM RADIOLOGY REPORT PROCEDURE: RADIOGRAPH L-SPINE 2-3 VIEWS COMPARISON: None. INDICATIONS: Low back pain radiating into left leg FINDINGS: BONES: No acute fracture or spondylolisthesis. 17? of rotatory levo scoliosis centered at L3. Moderate to severe degenerative spondylosis and facet osteoarthritis DISC SPACES: Multilevel disc space narrowing with endplate sclerosis. Vacuum discs at L2-3 and L5-5 S1 PARASPINOUS: Negative. No paraspinous abnormality is seen. OTHER: Moderate atherosclerosis CONCLUSION: 1. Moderate atherosclerosis and rotatory levoscoliosis Dictated by: Tarsha Moe M.D. on 08/25/2019 at 14:37 Approved by: Tarsha Moe M.D. on 08/25/2019 at 14:38 Normal [facility] CBC AUTO DIFFon 06-28-2019 Basophils (Bld) [#/Vol] 0.1 103/ul Normal 0.0-0.1 [facility] Comment on above: Performed By: #### C BC #### [facility] [address] [place], [place] [id number] Audrey Yesenia Basophils/100 WBC (Bld) 0.8 % Normal 0.2-2.0 [facility] Comment on above: Performed By: #### C BC #### [facility] [address] [place], [place] [id number] Audrey Yesenia Eosinophils (Bld) [#/Vol] 0.4 103/ul Normal 0.0-0.7 [facility] Comment on above: Performed By: #### C BC #### [facility] [address] [place], [place] [id number] Audrey Yesenia Eosinophils/100 WBC (Bld) 5.6 % Normal 0.9-7.0 [facility] Comment on above: Performed By: #### C BC #### [facility] [address] [place], [place] [id number] Audrey Yesenia Erythrocyte distribution width (RBC) [Ratio] 12.3 % Normal 11.0-15.0 [facility] Comment on above: Performed By: #### C BC #### [facility] [address] [place], [place] [id number] Audrey Yesenia Hematocrit (Bld) [Volume fraction] 44.1 % Normal 42.0-54.0 [facility] Comment on above: Performed By: #### C BC #### [facility] [address] [place], [place] [id number] Audrey Yesenia Hemoglobin (Bld) [Mass/Vol] 15.2 g/dL Normal 14.0-18.0 [facility] Comment on above: Performed By: #### C BC #### [facility] [address] [place], [place] [id number] Audrey Yesenia IG # 0.04 10e3/ul Critically high 0.00-0.03 [facility] Comment on above: Performed By: #### C BC #### [facility] [address] [place], [place] [address] Audrey Yesenia IG % 0.5 % Normal 0.0-0.5 [facility] Comment on above: Performed By: #### C BC #### [facility] [address] [place], [place] [address] Audrey Yesenia Lymphocytes (Bld) [#/Vol] 1.7 103/ul Normal 1.2-3.8 [facility] Comment on above: Performed By: #### C BC #### [facility] [address] [place] [id number] Audrey Yesenia Lymphocytes/100 WBC (Bld) 22.1 % Normal 20.5-60.0 [facility] Comment on above: Performed By: #### C BC #### [facility] [address] [place], [place] [id number] Audrey Yesenia MANUAL DIFF REQ NO Normal [facility] Comment on above: Performed By: #### C BC #### [facility] [address] [place], [place] [id number] Audrey Yesenia MCH (RBC) [Entitic mass] 30.2 pg Normal 25.9-34.0 [facility] Comment on above: Performed By: #### C BC #### [facility] [address] [place], [place] [id number] Audrey Yesenia MCHC (RBC) [Mass/Vol] 34.5 g/dL Normal 29.9-35.2 [facility] Comment on above: Performed By: #### C BC #### [facility] [address] [place], [place] [id number] Audrey Yesenia MCV (RBC) [Entitic vol] 87.7 fL Normal 80.0-94.0 [facility] Comment on above: Performed By: #### C BC #### [facility] [address] [place], [place] [id number] Audrey Yesenia Monocytes (Bld) [#/Vol] 0.7 103/ul Normal 0.3-0.8 [facility] Comment on above: Performed By: #### C BC #### [facility] [address] [place], [place] [address] Audrey Yesenia Monocytes/100 WBC (Bld) 8.8 % Normal 1.7-12.0 [facility] Comment on above: Performed By: #### C BC #### [facility] [address] [place], [place] [address] Audrey Yesenia Neutrophils (Bld) [#/Vol] 4.7 103/ul Normal 1.4-6.5 [facility] Comment on above: Performed By: #### C BC #### [facility] [address] [place], [place] [address] Audrey Yesenia Neutrophils/100 WBC (Bld) 62.2 % Normal 43.0-75.0 [facility] Comment on above: Performed By: #### C BC #### [facility] [address] [place], [place] [address] Audreysamantha Knotten Platelet mean volume (Bld) [Entitic vol] 9.6 fL Normal 9.5-13.5 [facility] Comment on above: Performed By: #### C BC #### [facility] [address] [place], [place] [address] Audrey Yesenia Platelets (Bld) [#/Vol] 171 103/ul Normal 150-450 [facility] Comment on above: Performed By: #### C BC #### [facility] [address] [place], [place] [address] Audrey Yesenia RBC (Bld) [#/Vol] 5.03 106/ul Normal 4.70-6.10 [facility] Comment on above: Performed By: #### C BC #### [facility] [address] [place], [place] [address] Audrey Yseenia WBC (Bld) [#/Vol] 7.5 103/ul Normal 4.0-11.0 [facility] Comment on above: Performed By: #### C BC #### [facility] [address] [place], [place] [address] Audrey Patterson PROF CHEM 8 (BAS METB)on Anion gap [Moles/Vol] 14.3 mmol/L Normal [facility] Comment on above: Performed By: #### B MP #### [facility] [address] [place] [id number] Audrey Yesenia Calcium [Mass/Vol] 9.1 mg/dL Normal 8.4-10.2 [facility] Comment on above: Performed By: #### B MP #### [facility] [address] [place] [address] Audrey Yesenia Chloride [Moles/Vol] 100 mmol/L Normal 98-107 [facility] Comment on above: Performed By: #### B MP #### [facility] [address] [place] [address] Audrey Yesenia CO2 [Moles/Vol] 23.7 mmol/L Normal 22.0-30.0 [facility] [place] [facility] Comment on above: Performed By: #### B MP #### [facility] [address] [place] [address] Audrey Yesenia Creatinine [Mass/Vol] 1.19 mg/dL Normal 0.66-1.25 [facility] Comment on above: Performed By: #### B MP #### [facility] [address] [place], [place] [id number] Audrey Yesenia EGFR-AF MACEDONIAN >60 Normal >=60 [facility] [place] [facility] Comment on above: Performed By: #### B MP #### [facility] [address] [place] [address] Audrey Yesenia EGFR-NON AF MACEDONIAN >60 Normal >=60 [facility] Comment on above: Performed By: #### B MP #### [facility] [address] [place] [address] Audrey Yesenia Glucose [Mass/Vol] 126 mg/dL Critically high 74-106 [facility] Comment on above: Performed By: #### B MP #### [facility] [address] [place] [address] Audrey Yesenia Potassium [Moles/Vol] 4.0 mmol/L Normal 3.4-5.0 [facility] Comment on above: Performed By: #### B MP #### [facility] [address] [place], [place] [address] Audrey Yesenia Sodium [Moles/Vol] 134 mmol/L Critically low 137-145 [facility] Comment on above: Performed By: #### B MP #### [facility] [address] [place], [place] [address] Audrey Yesenia Urea nitrogen [Mass/Vol] 15.0 mg/dL Normal 9.0-20.0 [facility] Comment on above: Performed By: #### B MP #### [facility] [address] [place], [place] [address] Audrey Yesenia Urea nitrogen/Creatinin e [Mass ratio] 12.6 mg/mg Normal [facility] Comment on above: Performed By: #### B MP #### [facility] [address] [place], [place] [address] Audrey Yesenia Vital Signs Date Time Vital Sign Value Performing Clinician Facility 12-22-2024 14:00-0400 Body height 180.3 cm [employer] Work Phone: [facility] [employer] 12-22-2024 14:00-0400 Body mass index (BMI) [Ratio] 40.25 kg/m2 [employer] DO Work Phone: [facility] [employer] 12-22-2024 14:00-0400 Body temperature 98.2 [degF] [employer] [facility] 12-22-2024 14:00-0400 Body weight 130.91 kg [employer] DO Work Phone: [facility] [employer] 12-22-2024 14:00-0400 Diastolic blood pressure 80 mm[Hg] [employer] [facility] 12-22-2024 14:00-0400 Heart rate 74 /min [employer] Work Phone: [facility] 12-22-2024 14:00-0400 Respiratory rate 18 /min [employer] Work Phone: [facility] 12-22-2024 14:00-0400 SaO2% (BldA) [Mass fraction] 97 % Herb De La Rosa DO Work Phone: [facility] 12-22-2024 14:00-0400 Systolic blood pressure 138 mm[Hg] Herb De La Rosa DO Work Phone: [facility] 12-20-2024 13:18-0400 Body height 180.3 cm Brooke Koehler MD Work Phone: [facility] 12-20-2024 13:18-0400 Body mass index (BMI) [Ratio] 41.42 kg/m2 Brooke Koehler MD Work Phone: [facility] 12-20-2024 13:18-0400 Body weight 134.72 kg Brooke Koehler MD Work Phone: [facility] 12-20-2024 13:18-0400 Diastolic blood pressure 79 mm[Hg] Brooke Koehler MD Work Phone: [facility] 12-20-2024 13:18-0400 Heart rate 81 /min Brooke Koehler MD Work Phone: [facility] 12-20-2024 13:18-0400 Systolic blood pressure 129 mm[Hg] Brooke Koehler MD Work Phone: [facility] 11-29-2024 12:57-0400 Body height 180.3 cm Brooke Koehler MD Work Phone: [facility] 11-29-2024 12:57-0400 Body mass index (BMI) [Ratio] 41.42 kg/m2 Brooke Koehler MD Work Phone: [facility] 11-29-2024 12:57-0400 Body weight 134.72 kg Brooke Koehler MD Work Phone: [facility] 11-29-2024 12:57-0400 Diastolic blood pressure 80 mm[Hg] Brooke Koehler MD Work Phone: [facility] 11-29-2024 12:57-0400 Heart rate 86 /min Brooke Koehler MD Work Phone: [facility] [employer] 11-29-2024 12:57-0400 Systolic blood pressure 126 mm[Hg] Brooke Koehler MD Work Phone: [facility] 11-24-2024 10:18-0500 Body height 180.3 cm Herb [employer] DO Work Phone: [facility] [employer] 11-24-2024 10:18-0500 Body mass index (BMI) [Ratio] 41 kg/m2 Herb 2smslong DO Work Phone: [facility] [employer] 11-24-2024 10:18-0500 Body temperature 97.81 [degF] Herb [employer] DO Work Phone: [facility] [employer] 11-24-2024 10:18-0500 Body weight 133.36 kg Herb [employer] DO Work Phone: [facility] [employer] 11-24-2024 10:18-0500 Diastolic blood pressure 80 mm[Hg] Herb 2smslong DO Work Phone: [facility] [employer] 11-24-2024 10:18-0500 Heart rate 67 /min Herb [employer] DO Work Phone: [facility] [employer] 11-24-2024 10:18-0500 Respiratory rate 18 /min Herb [employer] DO Work Phone: [facility] [employer] 11-24-2024 10:18-0500 SaO2% (BldA) [Mass fraction] 98 % Herb 2smslong DO Work Phone: [facility] [employer] 11-24-2024 10:18-0500 Systolic blood pressure 140 mm[Hg] Herb Furlong DO Work Phone: [facility] [employer] [facility] 05-19-2024 14:11-0400 Body height 180.3 cm Herb 2smslong DO Work Phone: [facility] [employer] 05-19-2024 14:11-0400 Body mass index (BMI) [Ratio] 35.84 kg/m2 Herb Furlong DO Work Phone: [facility] [employer] 05-19-2024 14:11-0400 Body temperature 98.01 [degF] Herb Furlong DO Work Phone: [facility] [employer] 05-19-2024 14:11-0400 Body weight 116.57 kg Herb Furlong DO Work Phone: [facility] [employer] 05-19-2024 14:11-0400 Diastolic blood pressure 72 mm[Hg] Herb Furlong DO Work Phone: [facility] [employer] 05-19-2024 14:11-0400 Heart rate 73 /min Herb Furlong DO Work Phone: [facility] [employer] 05-19-2024 14:11-0400 Respiratory rate 18 /min Herb Furlong DO Work Phone: [facility] [employer] 05-19-2024 14:11-0400 SaO2% (BldA) [Mass fraction] 96 % Herb Furlong DO Work Phone: [facility] [employer] 05-19-2024 14:11-0400 Systolic blood pressure 130 mm[Hg] Herb Furlong DO Work Phone: [facility] [employer] [facility] 04-07-2024 14:38-0400 Body height 180.3 cm Herb Furlong DO Work Phone: [facility] [employer] 04-07-2024 14:38-0400 Body mass index (BMI) [Ratio] 36.43 kg/m2 Herb Furlong DO Work Phone: [facility] [employer] [facility] 04-07-2024 14:38-0400 Body temperature 97.9 [degF] Hreb Furlong DO Work Phone: [facility] [employer] [facility] 04-07-2024 14:38-0400 Body weight 118.48 kg Herb Furlong DO Work Phone: [facility] [employer] [facility] 04-07-2024 14:38-0400 Diastolic blood pressure 70 mm[Hg] Herb Furlong DO Work Phone: [facility] [employer] [facility] 04-07-2024 14:38-0400 Heart rate 65 /min Herb Furlong DO Work Phone: [facility] 04-07-2024 14:38-0400 SaO2% (BldA) [Mass fraction] 98 % Herb Furlong DO Work Phone: [facility] [employer] [facility] 04-07-2024 14:38-0400 Systolic blood pressure 132 mm[Hg] Herb Furlong DO Work Phone: [facility] [employer] [facility] 03-07-2024 14:36-0400 Body height 180.3 cm Herb Furlong DO Work Phone: [facility] 03-07-2024 14:36-0400 Body mass index (BMI) [Ratio] 36.68 kg/m2 Herb Furlong DO Work Phone: [facility] 03-07-2024 14:36-0400 Body temperature 98.2 [degF] Herb Furlong DO Work Phone: [facility] [employer] [facility] 03-07-2024 14:36-0400 Body weight 119.3 kg Herb Furlong DO Work Phone: [facility] 03-07-2024 14:36-0400 Diastolic blood pressure 70 mm[Hg] Herb Furlong DO Work Phone: [facility] 03-07-2024 14:36-0400 Heart rate 65 /min Herb Furlong DO Work Phone: [facility] 03-07-2024 14:36-0400 SaO2% (BldA) [Mass fraction] 99 % Herb Furlong DO Work Phone: [facility] [employer] [facility] 03-07-2024 14:36-0400 Systolic blood pressure 110 mm[Hg] Herb Furlong DO Work Phone: [facility] 02-04-2024 14:37-0400 Body height 180.3 cm Herb Furlong DO Work Phone: [facility] 02-04-2024 14:37-0400 Body mass index (BMI) [Ratio] 38.02 kg/m2 Herb Furlong DO Work Phone: [facility] 02-04-2024 14:37-0400 Body temperature 97.59 [degF] Herb Furlong DO Work Phone: [facility] 02-04-2024 14:37-0400 Body weight 123.65 kg Herb Furlong DO Work Phone: [facility] 02-04-2024 14:37-0400 Diastolic blood pressure 70 mm[Hg] Herb Furlong DO Work Phone: [facility] 02-04-2024 14:37-0400 Heart rate 66 /min Herb Furlong DO Work Phone: [facility] 02-04-2024 14:37-0400 SaO2% (BldA) [Mass fraction] 96 % Herb Furlong DO Work Phone: [facility] 02-04-2024 14:37-0400 Systolic blood pressure 108 mm[Hg] Herb Randallong DO Work Phone: [facility] 01-05-2024 14:22-0400 Body height 180.3 cm Herb Randallong DO Work Phone: [facility] 01-05-2024 14:22-0400 Body mass index (BMI) [Ratio] 38.35 kg/m2 Herb Furlong DO Work Phone: [facility] 01-05-2024 14:22-0400 Body weight 124.74 kg Herb Furlong DO Work Phone: [facility] 01-05-2024 14:22-0400 Diastolic blood pressure 84 mm[Hg] Herb Furlong DO Work Phone: [facility] 01-05-2024 14:22-0400 Systolic blood pressure 138 mm[Hg] Herb Teelong DO Work Phone: [facility] 12-30-2022 15:15-0400 Body height 182.88 cm Tarsha Gatica Other [employer] Other 12-30-2022 15:15-0400 Body mass index (BMI) [Ratio] 37.56 kg/m2 Tarsha Gatica Other [employer] Other 12-30-2022 15:15-0400 Body weight 125.65 kg Tarsha Gatica Other [employer] Other 12-30-2022 15:15-0400 Diastolic blood pressure 76 mm[Hg] Tarsha Gatica Other [employer] Other 12-30-2022 15:15-0400 SaO2% (BldA) [Mass fraction] 96 % Tarsha Gatica Other [employer] Other 12-30-2022 15:15-0400 Systolic blood pressure 136 mm[Hg] Tarsha Gatica Other [employer] Other 12-24-2021 15:15-0400 Body height 182.88 cm Tarhsa Gatica Other [employer] Other 12-24-2021 15:15-0400 Body mass index (BMI) [Ratio] 40 kg/m2 Tarsha Gatica Other [employer] Other 12-24-2021 15:15-0400 Body temperature 98.6 [degF] Tarsha Gatica Other [employer] Other 12-24-2021 15:15-0400 Body weight 133.81 kg Tarsha Gatica Other [employer] Other 12-24-2021 15:15-0400 Diastolic blood pressure 78 mm[Hg] Tarsha Gatica Other [employer] Other 12-24-2021 15:15-0400 SaO2% (BldA) [Mass fraction] 97 % Tarsha Gatica Other [employer] Other 12-24-2021 15:15-0400 Systolic blood pressure 125 mm[Hg] Tarsha Gatica Other [employer] Other Encounters Encounter Date Encounter Type Care Provider Facility Start: 12-22-2024 End: 12-22-2024 Office outpatient visit 15 minutes Herb De La Rosa DO Work Phone: [facility] Comment on above: Morbid obesity ([facility]); [facility] Start: 12-22-2024 End: 12-22-2024 ambulatory HERBSULEMAN DE LA ROSA [facility] Start: 12-21-2024 End: 12-21-2024 Telephone encounter Lety Nguyen [facility] Work Phone: [facility] Comment on above: Left hearing aid Start: 12-20-2024 End: 12-20-2024 Sadiq Koehler MD Work Phone: [facility] Start: 12-20-2024 End: 12-20-2024 Sadiq Koehler MD Work Phone: [facility] Start: 12-20-2024 End: 12-20-2024 Office outpatient visit 25 minutes Brooke Koehler MD Work Phone: [facility] Comment on above: Sensorineural hearin g loss (SNHL) of left ear with restricted hearing of right ear (Primary Dx); Anosmia Start: 12-20-2024 End: 12-20-2024 ambulatory BROOKE H TIMMIS Not Available Start: 12-12-2024 End: 12-12-2024 ambulatory BROOKE H TIMMIS Not Available Start: 11-29-2024 End: 11-29-2024 Office outpatient new 45 minutes Brooke Koehler MD Work Phone: [facility] Comment on above: Sensorineural hearin g loss (SNHL) of left ear with restricted hearing of right ear (Primary Dx); Left-sided tinnitus; Active cochlear Meniere disease of left ear Start: 11-29-2024 End: 11-29-2024 ambulatory BROOKE Taurus TIMMIS Not Available Start: 11-24-2024 End: 11-24-2024 Office outpatient visit 15 minutes Herb Fabio Rj [facility] Comment on above: Essential (primary) hypertension (Primary Dx); Morbid obesity ([facility]); Class 3 severe obesity due to excess calories with serious comorbidity and body mass index (BMI) of 40.0 to 44.9 in adult ([facility]); Obstructive sleep apnea syndrome Start: 11-24-2024 End: 11-24-2024 ambulatory [facility] Start: 11-11-2024 End: 11-11-2024 Clinical Support Lety Nguyen [facility] Work Phone: [facility] Comment on above: Asymmetrical sensori neural hearing loss (Primary Dx); Tinnitus, bilateral; Dizziness Start: 10-25-2024 End: 10-25-2024 Telephone encounter Herb De La Rosa DO Work Phone: [facility] Start: 10-10-2024 End: 10-10-2024 Refill Herb De La Rosa DO Work Phone: [facility] Comment on above: Essential (primary) hypertension Start: 09-12-2024 End: 09-16-2024 Orders Only Herb De La Rosa DO Work Phone: [facility] Comment on above: Bilateral sensorineu ral hearing loss (Primary Dx) Start: 07-20-2024 End: 07-20-2024 Refill Herb De La Rosa DO Work Phone: [facility] Start: 06-15-2024 End: 06-15-2024 Refill Herb De La Rosa DO Work Phone: [facility] Start: 05-24-2024 End: 05-24-2024 Office outpatient visit 15 minutes Nika Mcmahan MD Work Phone: [facility] Comment on above: Prostate cancer ([facility]) (Primary Dx); Encounter for screening for malignant neoplasm of prostate Start: 05-24-2024 End: 05-24-2024 ambulatory NIKATAVO MCMAHAN [facility] Start: 05-19-2024 End: 05-19-2024 Office outpatient visit 25 minutes Herb De La Rosa DO Work Phone: [facility] Comment on above: Class 2 severe obesi ty due to excess calories with serious comorbidity and body mass index (BMI) of 35.0 to 35.9 in adult ([facility]) (Primary Dx); Encounter for screening for malignant neoplasm of prostate; Essential (primary) hypertension; Prostate cancer ([facility]); Meniere's disease, unspecified laterality Start: 05-19-2024 End: 05-19-2024 ambulatory [facility] Start: 04-07-2024 End: 04-07-2024 Office outpatient visit 15 minutes Herb De La Rosa DO [facility] Comment on above: Class 2 severe obesi ty due to excess calories with serious comorbidity and body mass index (BMI) of 36.0 to 36.9 in adult ([facility]) Start: 04-07-2024 End: 04-07-2024 [facility] Start: 03-31-2024 End: 03-31-2024 Refill Herb G Michaelng DO Work Phone: [facility] Comment on above: Erectile dysfunction due to arterial insufficiency Start: 03-28-2024 End: 03-28-2024 Telephone encounter [facility] Comment on above: Breast tenderness in male (Primary Dx) Start: 03-25-2024 End: 03-26-2024 Refill Herb G Randallong DO Work Phone: [facility] Comment on above: Essential (primary) hypertension Start: 03-07-2024 End: 03-07-2024 Office outpatient visit 15 minutes Herb G Michaelng DO Work Phone: [facility] Comment on above: Class 2 severe obesi ty due to excess calories with serious comorbidity and body mass index (BMI) of 38.0 to 38.9 in adult ([facility]) (Primary Dx); Mastodynia of left breast Start: 03-07-2024 End: 03-07-2024 [facility] Start: 02-10-2024 End: 02-11-2024 ambulatory [facility] Start: 02-04-2024 End: 02-04-2024 Office outpatient visit 25 minutes Herb G Michaelng DO Work Phone: [facility] Comment on above: Essential (primary) hypertension (Primary Dx); Hypercholesterolemia; Class 2 severe obesity due to excess calories with serious comorbidity and body mass index (BMI) of 38.0 to 38.9 in adult ([facility]); Erectile dysfunction due to arterial insufficiency; Prostate cancer (CMS-HCC); Insomnia, unspecified type; Impaired fasting glucose; Breast tenderness in male Start: 02-04-2024 End: 02-04-2024 ambulatory HERB G [facility] Start: 02-02-2024 End: 02-03-2024 ambulatory HERB DE LA ROSA [facility] Start: 02-01-2024 End: 02-02-2024 Orders Only Herb De La Rosa DO Work Phone: [facility] Comment on above: Ex-cigarette smoker (Primary Dx) Start: 01-14-2024 End: 01-14-2024 Refill Herb De La Rosa DO Work Phone: [facility] Start: 01-05-2024 End: 01-05-2024 Patient encounter procedure Herb De La Rosa DO [facility] Comment on above: Medicare annual well ness visit, subsequent (Primary Dx); Screening for depression Start: 01-05-2024 End: 01-06-2024 Orders Only Herb De La Rosa DO Work Phone: [facility] Comment on above: Hypercholesterolemia (Primary Dx); Primary hypertension; Impaired fasting glucose; Encounter for screening for malignant neoplasm of prostate Start: 12-30-2022 End: 12-30-2022 ambulatory Tarsha Gatica Facility:[facility] Start: 12-30-2022 End: 12-30-2022 Patient encounter procedure DO Herb De La Rosa Work Phone: [facility] Work Phone: Start: 12-30-2022 End: 12-30-2022 ambulatory DO Herb De La Rosa Work Phone: [facility] Work Phone: Start: 12-30-2022 Office outpatient vi sit 25 minutes Tarsha Gatica [facility] Start: 12-24-2021 End: 12-24-2021 ambulatory Tarsha Gatica Other [facility] [employer] Other Start: 12-24-2021 Office outpatient vi sit 25 minutes Tarsha Gatica [facility] Start: 12-24-2021 End: 12-24-2021 Patient encounter procedure DO Herb De La Rosa Work Phone: [facility] Start: 12-13-2019 Patient encounter procedure ADIN POWERS Facility:[facility] Start: 11-13-2019 End: 11-13-2019 Patient encounter procedure HERBSULEMAN TEELONG Facility:[facility] Start: 10-24-2019 End: 10-25-2019 Patient encounter procedure HERB G FURLONG Facility:[facility] Start: 08-25-2019 End: 08-26-2019 Patient encounter procedure HERB G RANDALLONG Facility:[facility] Start: 07-25-2019 Patient encounter procedure HERB TEELONG Facility:[facility] Start: 07-08-2019 Patient encounter procedure HERB TEELONG Facility:[facility] Start: 06-28-2019 End: 06-28-2019 Patient encounter procedure ARON MALIN Facility:[facility] Procedures Date Procedure Procedure Detail Performing Clinician Start: 11-11-2024 AUDITORY FUNCTION TESTS Lety Nguyen CCC-A Work Phone: Start: 04-07-2024 Adult depression scr eening assessment Herbsuleman Teelong DO Work Phone: Start: 03-07-2024 Follow-up visit Follow-up HERB DE LA ROSA Start: 03-07-2024 Adult depression scr eening assessment Herb Furlong DO Work Phone: Start: 02-04-2024 Adult depression scr eening assessment Herb Randallong DO Work Phone: Start: 01-05-2024 Adult depression scr eening assessment Herb Randallong DO Work Phone: Start: 02-06-2021 Colonoscopy Herb Tee long DO Work Phone: Plan of Treatment Date Care Activity Detail Author Start: 02-06-2031 Screening for malignant neoplasm of colon Colonoscopy [facility] Start: 12-22-2025 Adult BMI Screening Adult BMI Screening [facility] Start: 12-22-2025 Tobacco Screening Tobacco Screening [facility] Start: 11-24-2025 Adult BMI Screening Adult BMI Screening [facility] Start: 11-24-2025 Tobacco Screening Tobacco Screening [facility] Start: 09-21-2025 COVID-19 Vaccine ( season) COVID-19 Vaccine ( season) [facility] Comment on above: Postponed from 05/22/2024 (Patient Refus ed) Start: 06-06-2025 End: 06-06-2025 Patient encounter procedure 06/06/2025 2:15 PM EDT Office Visit [facility] [address] [place] [address] [address] [facility] [place] [address] Nika Mcmahan MD [facility] [place] [address] [facility] Start: 05-24-2025 End: 04-24-2026 Prostatic specific antigen, diagnostic Prostatic specific antigen, diagnostic Lab Routine Prostate cancer ([facility]) Encounter for screening for malignant neoplasm of prostate Expected: 05/24/2025 (Approximate), Expires: 04/24/2026 [facility] Comment on above: Expected: 05/24/2025 (Approximate), Expi res: 04/24/2026 Start: 05-22-2025 Influenza vaccination Influenza Vaccine [facility] Start: 05-19-2025 Adult BMI Screening Adult BMI Screening [facility] Start: 05-19-2025 Tobacco Screening Tobacco Screening [facility] Start: 04-07-2025 Adult BMI Screening Adult BMI Screening [facility] Start: 04-07-2025 Depression Screening Depression Screening [facility] Start: 04-07-2025 Fall Risk Screening Fall Risk Screening [facility] Start: 04-07-2025 Tobacco Screening Tobacco Screening [facility] Start: 03-07-2025 Adult BMI Screening Adult BMI Screening [facility] Start: 03-07-2025 Depression Screening Depression Screening [facility] Start: 03-07-2025 Fall Risk Screening Fall Risk Screening [facility] Start: 03-07-2025 Tobacco Screening Tobacco Screening [facility] Start: 02-03-2025 Adult BMI Screening Adult BMI Screening [facility] Start: 02-03-2025 Depression Screening Depression Screening [facility] Start: 02-03-2025 Fall Risk Screening Fall Risk Screening [facility] Start: 02-03-2025 Tobacco Screening Tobacco Screening [facility] Start: 01-19-2025 End: 01-19-2025 Patient encounter procedure 01/19/2025 2:00 PM EDT [facility] [address] [place] [address] Herb De La Rosa, [address], [facility] [place] [address] [facility] Start: 01-10-2025 End: 01-10-2025 Patient encounter procedure 01/10/2025 1:40 PM EDT Office Visit [facility] [address] [facility] [address] [place] [address] Brooke Koehler MD [address] [facility] [address] [place] [address] [facility] Start: 01-05-2025 End: 01-05-2025 Patient encounter procedure 01/05/2025 2:20 PM EDT Office Visit [facility] [address] [place] [address] [facility] Start: 01-04-2025 Adult BMI Screening Adult BMI Screening [facility] Start: 01-04-2025 Depression Screening Depression Screening [facility] Start: 01-04-2025 Medicare Annual Wellness Visit Medicare Annual Wellness Visit [facility] Start: 01-02-2025 Depression Screening Depression Screening [facility] Start: 01-02-2025 Fall Risk Screening Fall Risk Screening [facility] Start: 12-22-2024 End: 12-22-2024 Patient encounter procedure 12/22/2024 2:00 PM EDT Office Visit [facility] Family [facility] [address] [place] [address] Herb De La Rosa, DO [address] [place] [address] [facility] Start: 12-20-2024 End: 12-20-2024 Patient encounter procedure 12/20/2024 1:30 PM EDT Office Visit [facility] [address] [place] [id number] Brooke Koehler MD [address] [place] [address] Arrived [facility] Comment on above: Arrived Start: 11-24-2024 End: 11-24-2024 Patient encounter procedure 11/24/2024 10:30 AM EST Office Visit [facility] [address] [place] [address] Herb De La Rosa, DO [address] [place] [address] [facility] Start: 11-21-2024 End: 05-24-2025 Prostatic specific antigen, diagnostic Prostatic specific antigen, diagnostic Lab Routine Prostate cancer ([facility]) Encounter for screening for malignant neoplasm of prostate Expected: 11/21/2024 (Approximate), Expires: 05/24/2025 [facility] Work Phone: Comment on above: Expected: 11/21/2024 (Approximate), Expi res: 05/24/2025 Start: 11-15-2024 End: 11-15-2024 Patient encounter procedure 11/15/2024 1:10 PM EST Office Visit [facility] [address] [place] [id number] Brooke Koehler MD [address] [place] [address] [facility] Start: 09-14-2024 Administration of varicella zoster vaccine Zoster (Shingles) Vaccine (1 of 2) [facility] Start: 07-09-2024 Adult BMI Screening Adult BMI Screening [facility] Start: 07-09-2024 Tobacco Screening Tobacco Screening [facility] Start: 06-16-2024 End: 06-16-2024 Patient encounter procedure 06/16/2024 2:45 PM EDT Office Visit [facility] [address] [place] [phone] Herb De La Rosa DO [address], [facility] [place] [address] [facility] Start: 05-24-2024 End: 05-24-2024 Patient encounter procedure 05/24/2024 2:15 PM EDT Office Visit [facility] [address] [place] [address] [place] [address] Nika Mcmahan MD [facility] [place] [address] [facility] Start: 05-22-2024 COVID-19 Vaccine ( season) COVID-19 Vaccine ( season) [facility] Start: 05-22-2024 COVID-19 Vaccine ( season) COVID-19 Vaccine ( season) [facility] Start: 05-22-2024 Influenza vaccination Influenza Vaccine [facility] Start: 05-19-2024 End: 05-19-2024 Patient encounter procedure 05/19/2024 2:15 PM EDT Office Visit [facility] [address] [place] [address] Herb De La Rosa, DO [address] [place] [address] [facility] Internal Medicine Family [facility] Start: 04-07-2024 End: 04-07-2024 Patient encounter procedure 04/07/2024 2:45 PM EDT Office Visit [facility] Internal Medicine - Family [facility] [address] [place] [address] Herb DeL a Rosa, DO [address] [place] [address] [facility] Internal [facility] Start: 03-29-2024 End: 03-29-2024 Patient encounter procedure 03/29/2024 1:[address] [facility] - Ultrasound [address] [place] [address] Herb De La Rosa, DO [address] [place] [address] [facility] - [facility]trasound Start: 03-29-2024 Subsequent hospital visit by physician [facility] - Mammogram [facility] Start: 03-28-2024 End: 03-28-2025 MG Breast Diagnostic Mammography diagnostic bilateral with CAD Imaging Routine Breast tenderness in male Expected: 03/28/2024, Expires: 03/28/2025 [facility] Work Phone: Comment on above: Expected: 03/28/2024, Expires: Start: 03-07-2024 End: 03-07-2024 Patient encounter procedure 03/07/2024 2:45 PM EDT Office Visit [facility] Internal [facility] [address] [place] [phone] Herb De La Rosa, DO [address] [place] [address] [facility] Internal Medicine - Family Medicine Start: 03-07-2024 End: 03-07-2025 US Breast - left limited Ultrasound breast limited left Imaging Routine Mastodynia of left breast Expected: 03/07/2024, Expires: 03/07/2025 [facility] Work Phone: Comment on above: Expected: 03/07/2024, Expires: Start: 02-10-2024 End: 02-10-2024 Patient encounter procedure 02/10/2024 3:[address] [facility] - CT Imaging [address] [place] [address] Herb De La Rosa, [address] [place] [address] [facility] Imaging Start: 02-08-2024 End: 02-08-2024 Patient encounter procedure 02/08/2024 3:[address] [facility] - Ultrasound [address] [place] [address] [facility] Start: 02-04-2024 End: 02-04-2024 Patient encounter procedure 02/04/2024 2:30 PM EDT Office Visit [facility] Internal Medicine - Family Medicine [address] [place] [address] Herb De La Rosa, [address] [place] [address] [facility] Internal Medicine - Family Medicine Start: 02-01-2024 End: 01-31-2025 CT Chest for screening WO contrast CT low dose lung screening (Annual) Imaging Routine Ex-cigarette smoker Expected: 02/01/2024, Expires: 01/31/2025 [employer] [facility] [employer] Work Phone: Comment on above: Expected: 02/01/2024, Expires: Start: 05-22-2023 COVID-19 Vaccine ( season) COVID-19 Vaccine ( season) [facility] Start: 2022 Pneumococcal Vaccine: 65+ Years (1 of 1 - PCV) Pneumococcal Vaccine: 65+ Years (1 of 1 - PCV) [facility] Start: 1976 Administration of varicella zoster vaccine Zoster (Shingles) Vaccine (1 of 2) [facility] Start: 1976 DTaP,Tdap and Td Vaccines (1 - Tdap) DTaP,Tdap and Td Vaccines (1 - Tdap) [facility] Start: 1975 Adult BMI Follow Up Plan Adult BMI Follow Up Plan [facility] Start: 1957 Screening for malignant neoplasm of colon [facility] End: 05-19-2025 Basic metabolic 2000 panel - Serum or Plasma Basic Metabolic Panel Lab Routine Essential (primary) hypertension 1 Occurrences starting 05/19/2024 until 05/19/2025 [facility] [employer] Comment on above: 1 Occurrences starting 05/19/2024 until 05/19/2025 Basic metabolic 2000 panel - Serum or Plasma Basic Metabolic Panel Lab Routine Essential (primary) hypertension 05/19/2024 3:07 PM EDT [facility] [employer] End: 01-04-2025 Comprehensive metabolic 2000 panel - Serum or Plasma Comprehensive metabolic panel Lab Routine Hypercholesterolemia 1 Occurrences starting 01/05/2024 until 01/04/2025 [employer] [facility] [employer] Work Phone: Comment on above: 1 Occurrences starting 01/05/2024 until 01/04/2025 End: 01-04-2025 Hemoglobin A1c/Hemoglobin.total in Blood Hemoglobin A1c Lab Routine Impaired fasting glucose 1 Occurrences starting 01/05/2024 until 01/04/2025 [facility] [employer] Comment on above: 1 Occurrences starting 01/05/2024 until 01/04/2025 End: 01-04-2025 Lipid panel Lipid panel Lab Routine Hypercholesterolemia 1 Occurrences starting 01/05/2024 until 01/04/2025 [facility] [employer] Comment on above: 1 Occurrences starting 01/05/2024 until 01/04/2025 Prostate specific Ag [Mass/volume] in Serum or Plasma Prostatic specific antigen screen Lab Routine Prostate cancer ([facility]) Encounter for screening for malignant neoplasm of prostate 05/19/2024 3:07 PM EDT [facility] [employer] End: 01-04-2025 Prostatic specific antigen screen Prostatic specific antigen screen Lab Routine Encounter for screening for malignant neoplasm of prostate 1 Occurrences starting 01/05/2024 until 01/04/2025 [facility] [employer] Comment on above: 1 Occurrences starting 01/05/2024 until 01/04/2025 End: 05-19-2025 Prostatic specific antigen screen Prostatic specific antigen screen Lab Routine Prostate cancer ([facility]) Encounter for screening for malignant neoplasm of prostate 1 Occurrences starting 05/19/2024 until 05/19/2025 [employer] Phone: Comment on above: 1 Occurrences starting 05/19/2024 until 05/19/2025 Immunizations Immunization Date Immunization Notes Care Provider [facility] 09-15-2024 zoster vaccine recombinant Herb Furlong DO Work Phone: [facility] 07-20-2024 Seasonal trivalent influenza vaccine, adjuvanted, preservative free Herb Furlong DO Work Phone: [facility] 07-20-2024 zoster vaccine recombinant Herb Furlong DO Work Phone: [facility] 07-20-2024 influenza virus vaccine, unspecified formulation Herb Furlong DO Work Phone: [facility] 07-20-2024 zoster vaccine, unspecified formulation Herb Furlong DO Work Phone: [facility] 06-24-2021 influenza, injectabl e, quadrivalent, preservative free Herb Furlong DO Work Phone: [facility] 06-24-2021 influenza virus vaccine, unspecified formulation Herb Furlong DO Work Phone: [facility] 12-20-2020 COVID-19 Vaccine, vector-nr, rS-Ad26, PF, 0.5mL Her[facility]long DO [facility] 12-20-2020 COVID-19, mRNA, LNP- S, PF, 30mcg/0.3mL Dose Herb Furlong DO Work Phone: [facility] [employer] 11-30-2020 COVID-19 Vaccine, vector-nr, rS-Ad26, PF, 0.5mL Herb Furlong DO [facility] 11-30-2020 COVID-19, mRNA, LNP- S, PF, 30mcg/0.3mL Dose Herb Furlong DO Work Phone: [facility] Payers Date Payer Category Payer Medicare ANTHEM MEDICARE AN[employer]M MEDICARE ADVANTAGE [id number] 2023-Present [phone] [id number] [place] [id number] 2023 Medicare (Managed Care) [facility] [id number] 2023 Medicare HMO [employer] MEDICARE [id number] 2023 Medicare [id number] 2021 Medicare [id number] 1959 Self-pay 1959 Unknown [id number] 1957 Unknown [id number] 2.16.840.1.419246.3.579.2. 593 1957 Unknown [id number] 2.16.840.1.795909.3.579.2. 593 1957 Unknown [id number] 2.16.840.1.355542.3.579.2. 593 1957 Unknown [id number] 2.16.840.1.293583.3.579.2. 593 1957 Unknown [id number] 2.16.840.1.703892.3.579.2. 593 1957 Unknown [id number] 2.16.840.1.323348.3.579.2. 593 1957 Unknown [id number] 2.16.840.1.154506.3.579.2. 593 1957 Unknown [id number] 2.16.840.1.859815.3.579.2. 1286 1957 Unknown [id number] 2.16.840.1.762648.3.579.2. 1286 1957 Unknown [id number] 2.16.840.1.624030.3.579.2. 1259 1957 Unknown [id number] 2.16.840.1.938764.3.579.2. 1259 1957 Unknown [id number] 2.16.840.1.367775.3.579.2. 1259 1957 Unknown [id number] 2.16.840.1.243540.3.579.2. 1259 1957 Unknown [id number] 2.16.840.1.205372.3.579.2. 1286 1957 Unknown [id number] 2.16.840.1.049581.3.579.2. 1286 1957 Unknown [id number] 2.16.840.1.269112.3.579.2. 1285 1957 Unknown [id number] 2.16.840.1.943005.3.579.2. 6 1957 Unknown [id number] 2.16840.1.621259.3.579.2. 128 1957 Unknown [id number] 2.16.840.1.789525.3.579.2. 1286 1957 Unknown [id number] 2.16.840.1.611007.3.579.2. 1286 1957 Unknown [id number] 2.16.840.1.076422.3.579.2. 1286 Unknown [id number] Unknown [id number] Unknown [id number] 2.16840.1.940958.3.579.2. 531 Social History Date Type Detail Facility Tobacco smoking stat [facility] Unknown if ever smoked [facility] Work Phone: Start: 1955 Sex Assigned At Male [facility] Start: 02-06-2022 End: 01-05-2024 Sex Assigned At [facility] Start: 02-10-2022 End: 11-29-2024 Tobacco smoking status NHIS Ex-smoker [facility] Start: 09-21-1978 End: 09-21-2013 History of tobacco use Current smoker [facility] Start: 09-21-1978 End: 09-21-2013 History of tobacco use Cigarette Smoker [facility] Start: 02-06-2022 End: 02-10-2022 Cigarettes smoked current (pack per day) - Reported 1 [facility] Start: 02-10-2022 End: 11-29-2024 Tobacco use and exposure Smokeless tobacco non-user [facility] Start: 05-19-2024 End: 12-22-2024 Alcoholic beverage intake Current drinker of alcohol (finding) [facility] Has the [employer], [employer] threatened to shut off services in your home in past 12Mo No [facility] Do you belong to any clubs or organizations such as mormonism groups, unions, fraternal or athletic groups, or school groups? Yes [facility] Are you now , , , , never or living with a partner? [facility] How often to you hav e a drink containing alcohol? 2-4 times a month [facility] How many standard dr inks containing alcohol do you have on a typical day? 1 or 2 [facility] How often do you hav e 6 or more drinks on 1 occasion? Less than monthly [facility] How hard is it for y ou to pay for the very basics like food, housing, medical care, and heating Not hard at all [facility] Do you feel stress - tense, restless, nervous, or anxious, or unable to sleep at night because your mind is troubled all the time - these days [OSQ] Not at all [facility] Start: 02-06-2022 Education 14 [facility] Start: 12-03-2020 Alcohol Comment Occasional [facility] Start: 04-26-2015 Sex Male (finding) [facility] Start: 10-26-2021 Gender identity Identifies as male gender (finding) [facility] Start: 10-26-2021 Sexual orientation Heterosexual (finding) [facility] Tobacco smoking stat [facility] Tobacco smoking consumption unknown [facility] Start: 1955 Sex assigned at Not on file [facility] Are you now , , , , never or living with a partner? Living with partner [facility] Start: 11-29-2024 Alcohol Comment Occ [facility] Clinical Notes 12-24-2021 to 12-22-2024 Herb Mccarthy Rj, DO - 12/22/2024 2:00 PM EDTTelephone Encounter - Lety Nguyen, [facility] - 12/21/2024 4:37 PM EDTTelephone Encounter - Lety Nguyen, [facility] - 12/21/2024 4:37 PM EDT Note Date & Type Note Facility 12-22-2024 History of Presen t illness Narrative Subjective Patient ID: Godfrey Quintero is a 69 y.o. male. Scooter presents today for recheck of his weight. He is taking phentermine with benefit. He is not having any side effects. He is eating healthier. He is more active. He is walking more. He would like to continue it. The following portions of the patient's history were reviewed and updated as appropriate: allergies, current medications, past family history, past medical history, past social history, past surgical history, problem list, and medication reconciliation was completed including current medication and post discharge medication. Review of Systems Objective Physical Exam Vitals reviewed. Exam conducted with a track surfacing machine operator present. Constitutional: General: He is not in acute distress. Appearance: Normal appearance. He is morbidly obese. He is not ill-appearing. Cardiovascular: Rate and Rhythm: Normal rate and regular rhythm. Pulses: Normal pulses. Heart sounds: Normal heart sounds. No murmur heard. Pulmonary: Effort: Pulmonary effort is normal. No respiratory distress. Breath sounds: Normal breath sounds. Musculoskeletal: Cervical back: Neck supple. Right lower leg: No edema. Left lower leg: No edema. Neurological: General: No focal deficit present. Mental Status: He is alert and oriented to person, place, and time. Psychiatric: Attention and Perception: Attention normal. Mood and Affect: Mood and affect normal. Speech: Speech normal. Behavior: Behavior normal. Behavior is cooperative. Thought Content: Thought content normal. Judgment: Judgment normal. Assessment/Plan Scooter was seen today for weight check. Diagnoses and all orders for this visit: Morbid obesity ([facility]) - phentermine 37.5 MG capsule; Take 1 capsule (37.5 mg total) by mouth every morning before breakfast. He is using phentermine with benefit and w/o side effects. He is losing weight. We will continue it for another month. Prostate cancer ([facility]) F/U with urologist as dir documented in this encounter [facility] 12-21-2024 Telephone encounter Note Pt dropped off left PEDROZA - no sound. Verified aid is . Visual inspection revealed no wax guard and wax embedded on division commander. Attempted to suction wax from division commander but wax did not move. Called pt and informed him of above. Cost of repair is $325. Pt does not want to repair aid at this time. Will place aid up front for pear picker. [facility] [employer] Work Phone: 12-21-2024 Miscellaneous Notes Pt dropped off left PEDROZA - no sound. Verified aid is . Visual inspection revealed no wax guard and wax embedded on division commander. Attempted to suction wax from division commander but wax did not move. Called pt and informed him of above. Cost of repair is $325. Pt does not want to repair aid at this time. Will place aid up front for pear picker. documented in this encounter [facility] 12-20-2024 History of Presen t illness Narrative Subjective Patient ID: Godfrey Quintero is a 69 y.o. male who presents for Hearing Loss (Follow up MRI [facility] 12/12/24 ) MRI reviewed and there is no otologic path. Some ethmoid dz presents. Pt notes hyposmia, but no other sinus sx. Remote h/o ESS by Domonique. Review of Systems Family History Problem Relation Name Age of Onset Meniere's disease Mother Heart failure Father Active Ambulatory Problems Diagnosis Date Noted Arthritis 06/17/2022 Bilateral tinnitus 11/11/2024 Chronic pain 06/17/2022 Colon cancer screening 12/03/2020 Degeneration of intervertebral disc of lumbar region 11/14/2019 Erectile dysfunction 05/19/2023 Essential (primary) hypertension ([facility]) 07/10/2019 Ex-cigarette smoker 12/16/2022 Hypercholesterolemia ([facility]) 07/10/2019 Impaired fasting glucose 12/12/2021 Inequality of length of lower extremity 11/03/2019 Insomnia 07/09/2023 Lumbago with sciatica, left side 11/11/2024 Meniere's disease, left ear 11/11/2024 Obesity 08/31/2019 Obstructive sleep apnea syndrome 03/01/2021 Prostate cancer ([facility]) 07/09/2021 Sensorineural hearing loss (SNHL) of both ears 06/17/2022 Sensorineural hearing loss (SNHL) of left ear with restricted hearing of right ear 06/17/2022 Trochanteric bursitis 08/31/2019 Resolved Ambulatory Problems Diagnosis Date Noted No Resolved Ambulatory Problems Past Medical History: Diagnosis Date HL (hearing loss) History reviewed. No pertinent surgical history. No Known Allergies Current Outpatient Medications on File Prior to Visit Medication Sig Dispense Refill losartan (Cozaar) 100 MG tablet Take 100 mg by mouth in the morning. rosuvastatin (Crestor) 20 MG tablet Take 1 tablet by mouth in the morning. tamsulosin (Flomax) 0.4 MG 24 hr capsule Take 1 capsule by mouth at bedtime triamterene-hydroCHLOROthiazide (Dyazide) 37.5-25 MG capsule Take 1 capsule by mouth in the morning. [DISCONTINUED] fluticasone (Flonase) 50 MCG/ACT nasal spray Administer 2 sprays into affected nostril(s) in the morning. [DISCONTINUED] phentermine 15 MG capsule Take 15 mg by mouth in the morning. [DISCONTINUED] sildenafil (Viagra) 100 MG tablet Take 100 mg by mouth Daily as needed No current facility-administered medications on file prior to visit. Objective Last Recorded Vitals Vitals: 12/20/24 1318 BP: 129/79 Pulse: 81 ENT Physical Exam Assessment/Plan documented in this encounter [facility] 11-29-2024 History of Presen t illness Narrative Subjective Patient ID: Godfrey Quintero is a 69 y.o. male who presents for Hearing Loss (Audio 11/11/24) Pt seen in 2020 and diagnosed with possible left meniere's. Did not follow through with MRI ordered to R/O an AN. 11/11 audio shows markedly asymmetric left SNHL with 88% disc. Has a PEDROZA, but not working. Pt states he had a dizzy spell in Dec. No other dizzy spells a couple years. Constant crickets in left ear. Review of Systems All other systems reviewed and are negative. Family History Problem Relation Name Age of Onset Meniere's disease Mother Heart failure Father Active Ambulatory Problems Diagnosis Date Noted Arthritis 06/17/2022 Bilateral tinnitus 11/11/2024 Chronic pain 06/17/2022 Colon cancer screening 12/03/2020 Degeneration of intervertebral disc of lumbar region 11/14/2019 Erectile dysfunction 05/19/2023 Essential (primary) hypertension ([facility]) 07/10/2019 Ex-cigarette smoker 12/16/2022 Hypercholesterolemia ([facility]) 07/10/2019 Impaired fasting glucose 12/12/2021 Inequality of length of lower extremity 11/03/2019 Insomnia 07/09/2023 Lumbago with sciatica, left side 11/11/2024 Meniere's disease, left ear 11/11/2024 Obesity 08/31/2019 Obstructive sleep apnea syndrome 03/01/2021 Prostate cancer (CMS/HCC) 07/09/2021 Sensorineural hearing loss (SNHL) of both ears 06/17/2022 Sensorineural hearing loss (SNHL) of left ear with restricted hearing of right ear 06/17/2022 Trochanteric bursitis 08/31/2019 Resolved Ambulatory Problems Diagnosis Date Noted No Resolved Ambulatory Problems Past Medical History: Diagnosis Date HL (hearing loss) History reviewed. No pertinent surgical history. No Known Allergies Current Outpatient Medications on File Prior to Visit Medication Sig Dispense Refill fluticasone (Flonase) 50 MCG/ACT nasal spray Administer 2 sprays into affected nostril(s) in the morning. losartan (Cozaar) 100 MG tablet Take 100 mg by mouth in the morning. phentermine 15 MG capsule Take 15 mg by mouth in the morning. rosuvastatin (Crestor) 20 MG tablet Take 1 tablet by mouth in the morning. sildenafil (Viagra) 100 MG tablet Take 100 mg by mouth Daily as needed tamsulosin (Flomax) 0.4 MG 24 hr capsule Take 1 capsule by mouth at bedtime triamterene-hydroCHLOROthiazide (Dyazide) 37.5-25 MG capsule Take 1 capsule by mouth in the morning. No current facility-administered medications on file prior to visit. Objective Last Recorded Vitals Vitals: 11/29/24 1257 BP: 126/80 Pulse: 86 ENT Physical Exam Constitutional Appearance: patient appears well-developed and well-nourished, Head and Face Appearance: head appears normal and face appears atraumatic; Ear Ear comments: Marc ears normal Nose External Nose: nares patent bilaterally; external nose normal; Internal Nose: nasal mucosa normal; Oral Cavity/Oropharynx Lips: normal; Teeth: normal; Gums: gingiva normal; Tongue: normal; Oral mucosa: normal; Hard palate: normal; Neck Neck: neck normal; neck palpation normal; Thyroid: thyroid normal; Respiratory Inspection: breathing unlabored; normal breathing rate; Auscultation: breath sounds are clear; Cardiovascular Inspection: extremities are warm and well perfused; no peripheral edema present; Auscultation: regular rate and rhythm; Assessment/Plan Diagnoses and all orders for this visit: Sensorineural hearing loss (SNHL) of left ear with restricted hearing of right ear Left-sided tinnitus Active cochlear Meniere disease of left ear Pt long overdue for MRI to ensure no AN. If scan negative then will arrange for new LT PEDROZA. No need at this point to tx meniere's with dyazide as few spells. Will tx with meclizine prn. documented in this encounter [facility] 11-24-2024 History of Presen t illness Narrative Subjective Patient ID: Godfrey Quintero is a 69 y.o. male. Scooter presents today for a weight recheck. He was taking phentermine in the past and did lose a significant amount of weight with it. He stopped it on his own. He unfortunately has gained much of the weight back. He would like to restart it. The following portions of the patient's history were reviewed and updated as appropriate: allergies, current medications, past family history, past medical history, past social history, past surgical history, problem list, and medication reconciliation was completed including current medication and post discharge medication. Review of Systems Constitutional: Positive for appetite change and unexpected weight change. Respiratory: Negative. Cardiovascular: Negative. Neurological: Negative. Psychiatric/Behavioral: Negative. Objective Physical Exam Vitals reviewed. Exam conducted with a track surfacing machine operator present (Cruz Duckworth MS3). Constitutional: Appearance: He is obese. HENT: Head: Normocephalic. Cardiovascular: Rate and Rhythm: Normal rate and regular rhythm. Pulses: Normal pulses. Heart sounds: Normal heart sounds. No murmur heard. Pulmonary: Effort: Pulmonary effort is normal. No respiratory distress. Breath sounds: Normal breath sounds. No wheezing, rhonchi or rales. Musculoskeletal: Cervical back: Neck supple. Lymphadenopathy: Cervical: No cervical adenopathy. Neurological: General: No focal deficit present. Mental Status: He is alert and oriented to person, place, and time. Psychiatric: Attention and Perception: Attention normal. Mood and Affect: Mood and affect normal. Speech: Speech normal. Behavior: Behavior normal. Behavior is cooperative. Thought Content: Thought content normal. Cognition and Memory: Cognition normal. Judgment: Judgment normal. Assessment/Plan Scooter was seen today for weight loss. Diagnoses and all orders for this visit: Essential (primary) hypertension Blood pressure is borderline high. When he checks it at home it is in the 130s systolic. Weight loss should help lower blood pressure. Morbid obesity ([facility]) - phentermine 37.5 MG capsule; Take 1 capsule (37.5 mg total) by mouth every morning before breakfast. He is morbidly obese. He took phentermine in the past with benefit. We discussed various medications in the newer agents but would like to try the phentermine in part due to cost and he knows it works. Risks and benefits of medication discussed. He will incorporate healthy diet and exercise Class 3 severe obesity due to excess calories with serious comorbidity and body mass index (BMI) of 40.0 to 44.9 in adult ([facility]) As above Obstructive sleep apnea syndrome We discussed newer agent Zepbound for weight loss as it has been approved for sleep apnea and weight loss but he declines. documented in this encounter [facility] 11-11-2024 History of Presen t illness Narrative History: Pt was referred to ENT because of hearing loss. Pt reports constant tinnitus both ears, worse in the left ear and problems with dizziness. The dizziness makes it difficult for pt to drive. Pt has long history of bilateral sensorineural hearing loss, worse in the left ear. Last audio at this office was 12-17-20. Pt was fit with Cerevo 1000 ITC aid for his left ear in 2020. He only wears the aid when he is going out. Otoscopic Exam: Ear canal clear and TM intact both ears Pure Tone Audiometry Right Ear: Mild to moderate sensorineural hearing loss above 2K Hz Left Ear: Mild to severe sensorineural hearing loss Speech Audiometry Right SRT = 25 dB and word discrimination score at 55 dBHL = 100% Left SRT = 50 dB and word discrimination score at 75 dBHL (masked) = 88% Tympanometry Right Ear: Type A tympanogram Left Ear: Type A tympanogram documented in this encounter [facility] 10-25-2024 Miscellaneous Notes Need appt for weight loss, restart med 30 min Sent mychart msg documented in this encounter [facility] 10-25-2024 Telephone encounter Note Need appt for weight loss, restart med 30 min [facility] 10-25-2024 Telephone encounter Note Sent mychart msg [facility] 09-12-2024 Miscellaneous Notes Patient called and needs an updated referral to Dr. Koehler. Okay. Referral put in Lm via VM documented in this encounter [facility] 09-12-2024 Telephone encounter Note Patient called and needs an updated referral to Dr. Koehler. [facility] 09-12-2024 Telephone encounter Note Okay. Referral put in [facility] 09-12-2024 Telephone encounter Note Lm via VM [facility] 05-24-2024 History of Presen t illness Narrative Images from the original note were not included. [address] [place] [address] [facility] [id number] Patient: Godfrey Quintero Date of : 1955 Encounter Date: 05/24/2024 History of Present Illness: Chief Complaint: prostate cancer The patient is a 68 y.o. male, an established patient, and is here for followup. Patient has a history of an elevated PSA of 5. It was repeated July 09, 2021 and remained elevated 4.65. He underwent a 3 niya MRI October 21, 2021 which demonstrated a prostate volume of 23 mL. He had a PI rads 4 lesion measuring 14 mm in the peripheral zone. The remainder of the gland showed PI rads 3 lesion throughout. For went a targeted biopsy along with random sampling of his prostate on January 14, 2022. Final pathology demonstrated Kami 3+3=6 in 1 core and 3+4=7 in 6 cores. At baseline did get partial erections but not currently sexually active. No incontinence. Staging studies with bone scan CT scan abdomen pelvis were negative. He elected for radiation therapy with 6 month androgen deprivation therapy. Completed his androgen deprivation therapy in April 2023. Did have some difficulty voiding during the course of treatment and was started on tamsulosin which he continues on and reports he is voiding well. He had trialed stopping this without success. PSA as outlined below and is slowly rising as expected. Additionally patient was tried on Cialis 5 mg without any benefit.. Summary of old records: Urinalysis today: No results for input(s): EXTPOCURCO , EXTPOCURCH , EXTPOCAPP , EXTPOCURBS , EXTPOCURBIL , EXTPOCUKET , EXTPOCUSPG , EXTPOCUHGB , EXTPOCUPRO , EXTPOCUURO , EXTPOCULEU , EXTPOCUNIT , EXTPOCUWBC , EXTPOCUBLD , EXTPOCURBC , EXTPOCUCRY , EXTPOCUBAC , EXTPOCUTREP , EXTPOCUPH , EXTPOCULEE in the last 72 hours. Last BUN and creatinine: Lab Results Component Value Date BUN 15 05/19/2024 Lab Results Component Value Date CREATININE 1.17 05/19/2024 Last PSA: Lab Results Component Value Date PSA 0.25 05/19/2024 PSA 0.22 05/18/2023 PSA 0.14 02/19/2023 PSA 0.06 11/13/2022 PSA 0.11 08/04/2022 Lab Results Component Value Date PROSTATICSP 0.25 05/19/2024 Additional Lab/Culture results: None Imaging Reviewed during this Office Visit: None (Results were independently reviewed by physician and radiology report verified) Past Medical, Family, and Social History Update: The following portions of the patient's history were reviewed and updated as appropriate: allergies, current medications, past family history, past medical history, past social history, past surgical history and problem list. Past Medical History: Diagnosis Date Degenerative lumbar disc Elevated PSA HL (hearing loss) lt side/aide Hyperlipidemia Lung nodules 12/17/2020 CT of lung 3 mm rt lower 3mm lt side Meniere's disease Prostate cancer ([facility]) Sleep apnea Uses CPAP Vertigo Past Surgical History: Procedure Laterality Date COLONOSCOPY 2008 COLONOSCOPY N/A 02/06/2021 Performed by Marco A Giles DO at [facility] SURGERY Left 1966 KNEE ARTHROSCOPY Right 1969' x2 NEEDLE BIOPSY FUSION PROSTATE N/A 01/14/2022 Performed by Kasi Knott MD at [facility] SURGERY SHOULDER OPEN ROTATOR CUFF REPAIR Right 1969 Family History Problem Relation Age of Onset Bone cancer Mother Hypertension Mother Other Father accident Hypertension Brother Bone cancer Maternal Grandmother Anesthesia problems Neg Hx Bleeding Disorder Neg Hx Clotting disorder Neg Hx Diabetes Neg Hx Stroke Neg Hx Colon cancer Neg Hx Prostate cancer Neg Hx Current Outpatient Medications Medication Sig Dispense Refill fluticasone propionate (FLONASE) 50 mcg/actuation nasal spray Administer 2 sprays into each nostril in the morning. 16 g 5 losartan (COZAAR) 100 mg tablet take 1 tablet by mouth daily 90 tablet 1 phentermine 15 MG capsule Take 1 capsule (15 mg total) by mouth every morning. 30 capsule 0 rosuvastatin (CRESTOR) 20 mg tablet take 1 tablet by mouth every morning 90 tablet 1 sildenafiL (VIAGRA) 100 mg tablet Take 1 tablet (100 mg total) by mouth as needed for erectile dysfunction. 10 tablet 5 tamsulosin (FLOMAX) 0.4 mg capsule Take 1 capsule (0.4 mg total) by mouth nightly. 90 capsule 3 triamterene-hydroCHLOROthiazide (DYAZIDE) 37.5-25 mg per capsule Take 1 capsule by mouth in the morning. 30 capsule 5 No current facility-administered medications for this visit. (All medications reviewed and updated by provider since last office visit or hospitalization) Allergies: Patient has no known allergies. Tobacco History: Social History Tobacco Use Smoking Status Former Current packs/day: 0.00 Average packs/day: 1 pack/day for 35.0 years (35.0 ttl pk-yrs) Types: Cigarettes Start date: 1978 Quit date: 2013 Years since quittin.6 Smokeless Tobacco Never (If patient a smoker, smoking cessation counseling offered) Social History: Social History Substance and Sexual Activity Alcohol Use Yes Comment: Occasional Review of Systems: General: Otherwise negative Cardiovascular: Negative for chest pain and shortness of breath. Gastrointestinal: Negative for constipation, diarrhea, nausea, and vomitting. -per HPI Physical Exam: There were no vitals taken for this visit. Assessment and Plan: Diagnoses and all orders for this visit: Prostate cancer ([facility]) - Prostatic specific antigen, diagnostic; Future - Prostatic specific antigen, diagnostic; Future Encounter for screening for malignant neoplasm of prostate - Prostatic specific antigen, diagnostic; Future - Prostatic specific antigen, diagnostic; Future Problem List Genitourinary Prostate cancer ([facility]) - Primary Overview 07/09/21: Elevated psa with normal exam. PSA repeat 4.65. Recommend 3 niya MRI for further evaluation. 10/29/21: 3 niya MRI with * PI-RADS 4: High (clinically significant cancers likely to be present). Suspicious 14 mm observation in the right mid gland posterolateral peripheral zone. * PI-RADS 3, indeterminate heterogeneous hypointensity throughout the peripheral zone which may represent sequelae of prostatitis versus multifocal carcinoma. Plan for targeted biopsy. Prescription for Levaquin provided. 01/21/22: Highest [place] Grade: 3+4=7 # of cores Positive: 6 of 14 Laterality: Right Patient's PSA is: 4.65 Prostate Volume is: 23 cc PSA Density 0.049 Clinical stage is: T2b NCCN clinical risk group is: unfavorable intermediate Baseline urinary function is: no incontinence Baseline sexual function is: poor quality (not actcive) Today we reviewed his pathology and explained the [place] score. We additionally discussed in great detail the available options for localized prostate cancer including active surveillance and the rationale behind that, radical prostatectomy including the side effects of bleeding, infection, urinary incontinence, erectile dysfunction, potential need for adjuvant radiation therapy and injury to rectum as well as the other side effects outlined in the consent. We additionally talked about radiation therapy both external beam as well as brachytherapy and the potential side effects associated with that including irritative bladder and bowel dysfunction both in the short-term and long-term. Cryosurgical destruction of the prostate and watchful waiting were also discussed. All relevant risks and benefits were discussed to the satisfaction of the patient and those involved in the discussion. He was given a copy of his pathology as well as a book and handouts regarding prostate cancer treatment options. He has been given a follow-up appointment to discuss further in the next 1-2 weeks after he has had time to review the material provided and we can answer any additional questions at that time. Bone scan and ct ordered per nccn guidelines 01/31/22: Bone scan: Foci of uptake seen in the anterior left fifth and possibly sixth rib suggestive of sequela of trauma or prior fracture. Multiple foci of tracer uptake correspond to degenerative changes without discretely identifiable osseous lesions on the CT abdomen and pelvis performed on the same day most compatible with sequela of degenerative change. 02/04/22: Findings reviewed. Again discussed treatment options including surgery versus radiation with androgen deprivation therapy. He is interested in the latter. Per the NCCN guidelines it is recommended he get 4-6 months of ADT. I have referred him to Radiation Oncology with plans for Lupron shot in a few weeks after meeting with them 05/12: completed xrt 11/18/22: PSA has continued to decline as outlined above. Recommendation was to stop tamsulosin and restart only of worsening lower urinary tract symptoms. AUA symptom score is 5 with quality life score 1. 9: psa slowly rising as expected. Plan to continue to follow every 6 months Relevant Orders Prostatic specific antigen, diagnostic Prostatic specific antigen, diagnostic Follow-up: Check psa 6 months, return 1 year with psa Nika Mcmahan MD This note was created with the assistance of a speech recognition program. While intending to generate a timely document that accurately reflects the content of the visit, no guarantee can be provided that every grammatical or spelling mistake has been or will be identified or corrected. Thank you for your understanding. [facility] History of Presen t illness Narrative Subjective Patient ID: Godfrey Quintero is a 68 y.o. male. Scooter presents today for weight loss recheck. He had an episode of vertigo and had to go to the emergency room. His blood pressure was okay in the emergency room. He is better right now. He has continued to lose weight with the phentermine but he did stop it because his blood pressure was high when he checked it at home-160/100. He is still interested in weight loss medication. He does have history of Meniere's disease. He has hearing loss in both ears but worse in his right ear. He has seen ENT in the past but has been doing well with it. The following portions of the patient's history were reviewed and updated as appropriate: allergies, current medications, past family history, past medical history, past social history, past surgical history, problem list, and medication reconciliation was completed including current medication and post discharge medication. Review of Systems Objective Physical Exam Constitutional: Appearance: He is obese. HENT: Head: Normocephalic. Cardiovascular: Rate and Rhythm: Normal rate and regular rhythm. Pulses: Normal pulses. Heart sounds: Normal heart sounds. No murmur heard. Pulmonary: Effort: Pulmonary effort is normal. No respiratory distress. Breath sounds: Normal breath sounds. No wheezing, rhonchi or rales. Musculoskeletal: Cervical back: Neck supple. Lymphadenopathy: Cervical: No cervical adenopathy. Neurological: General: No focal deficit present. Mental Status: He is alert and oriented to person, place, and time. Psychiatric: Attention and Perception: Attention normal. Mood and Affect: Mood and affect normal. Speech: Speech normal. Behavior: Behavior normal. Behavior is cooperative. Thought Content: Thought content normal. Cognition and Memory: Cognition normal. Judgment: Judgment normal. Assessment/Plan Scooter was seen today for weight check. Diagnoses and all orders for this visit: Class 2 severe obesity due to excess calories with serious comorbidity and body mass index (BMI) of 35.0 to 35.9 in adult ([facility]) - phentermine 15 MG capsule; Take 1 capsule (15 mg total) by mouth every morning. He continues to lose weight. He has lost greater than 5% of his body weight. We discussed different treatment alternatives. There is a lower dose phentermine and he is interested in that is so we will try that. He was encouraged to continue diet and exercise. His blood pressure is okay here and we will add another agent. Encounter for screening for malignant neoplasm of prostate - Prostatic specific antigen screen; Future Essential (primary) hypertension - Basic Metabolic Panel; Future Check BMP and start Dyazide 37.5-25. Prostate cancer ([facility]) - Prostatic specific antigen screen; Future Check PSA per Urology Meniere's disease, unspecified laterality Will start Dyazide for blood pressure and Meniere's. Other orders - triamterene-hydroCHLOROthiazide (DYAZIDE) 37.5-25 mg per capsule; Take 1 capsule by mouth in the morning. - fluticasone propionate (FLONASE) 50 mcg/actuation nasal spray; Administer 2 sprays into each nostril in the morning. documented in this encounter [facility] 04-07-2024 History of Presen t illness Narrative Subjective Patient ID: Godfrey Quintero is a 68 y.o. male. Scooter presents for wt recheck. He is on phentermine and it is helping. He is not having any side effects. He is exercising. He is eating healthier. The following portions of the patient's history were reviewed and updated as appropriate: allergies, current medications, past family history, past medical history, past social history, past surgical history, problem list, and medication reconciliation was completed including current medication and post discharge medication. Review of Systems Objective Physical Exam Constitutional: General: He is not in acute distress. Appearance: He is obese. HENT: Head: Normocephalic. Cardiovascular: Rate and Rhythm: Normal rate and regular rhythm. Pulses: Normal pulses. Heart sounds: Normal heart sounds. Pulmonary: Effort: Pulmonary effort is normal. Breath sounds: Normal breath sounds. Musculoskeletal: Cervical back: Neck supple. Neurological: General: No focal deficit present. Mental Status: He is alert and oriented to person, place, and time. Psychiatric: Mood and Affect: Mood normal. Behavior: Behavior normal. Thought Content: Thought content normal. Judgment: Judgment normal. Assessment/Plan Scooter was seen today for weight loss. Diagnoses and all orders for this visit: Class 2 severe obesity due to excess calories with serious comorbidity and body mass index (BMI) of 36.0 to 36.9 in adult ([facility]) - phentermine 37.5 MG capsule; Take 1 capsule (37.5 mg total) by mouth every morning before breakfast. He is using phentermine with benefit. He is not having any side effects. He has incorporated healthy habits in his lifestyle. Unfortunately he only lost 2#. He will need to lose 5% of his TBW in the next 30 days to continue. He is down 11# and needs to lose about 3 more pounds. documented in this encounter [facility] 03-28-2024 Miscellaneous Notes Centralized scheduling called and stated she was told the patient did not need the US of breast. If you styiaugusto documented in this encounter [facility] 03-28-2024 Telephone encounter Note Centralized scheduling called and stated she was told the patient did not need the US of breast. If you axel [facility] 03-07-2024 History of Presen t illness Narrative Subjective Patient ID: Godfrey Quintero is a 68 y.o. male. Scooter presents for a weight recheck. He has no new problems to report. He is taking medication and not having any side effects. He bought a treadmill and gets on it 15-20 minutes every other day. He does not have any chest pain or shortness a breath out of the ordinary when he does exercise. He is also decreased his intake. Medication is curbing his appetite. He has not as hungry during the middle in later in the day. His left breast is [employer]. Feels like it is stinging. It hurts when he touches it. There has been no rash. He does not have any nipple discharge. The following portions of the patient's history were reviewed and updated as appropriate: allergies, current medications, past family history, past medical history, past social history, past surgical history, problem list, and medication reconciliation was completed including current medication and post discharge medication. Review of Systems Constitutional: Positive for activity change and appetite change. Respiratory: Negative. Cardiovascular: Negative. Gastrointestinal: Negative. Neurological: Negative. Psychiatric/Behavioral: Negative. Objective Physical Exam Constitutional: General: He is not in acute distress. Appearance: He is obese. HENT: Head: Normocephalic. Cardiovascular: Rate and Rhythm: Normal rate and regular rhythm. Pulses: Normal pulses. Heart sounds: Normal heart sounds. No murmur heard. Pulmonary: Effort: Pulmonary effort is normal. No respiratory distress. Breath sounds: Normal breath sounds. No wheezing, rhonchi or rales. Chest: Breasts: Left: Tenderness present. No swelling, bleeding, mass or nipple discharge. Musculoskeletal: Cervical back: Neck supple. Right lower leg: No edema. Left lower leg: No edema. Skin: General: Skin is warm and dry. Neurological: Mental Status: He is alert and oriented to person, place, and time. Cranial Nerves: No cranial nerve deficit. Psychiatric: Attention and Perception: Attention normal. Mood and Affect: Mood and affect normal. Speech: Speech normal. Behavior: Behavior normal. Behavior is cooperative. Thought Content: Thought content normal. Cognition and Memory: Cognition normal. Judgment: Judgment normal. Assessment/Plan Scooter was seen today for follow-up. Diagnoses and all orders for this visit: Mastodynia of left breast - Ultrasound breast limited left; Future Check ultrasound to evaluate further. Etiology is unclear. May need further evaluation. Class 2 severe obesity due to excess calories with serious comorbidity and body mass index (BMI) of 38.0 to 38.9 in adult ([facility]) - phentermine 37.5 MG capsule; Take 1 capsule (37.5 mg total) by mouth every morning before breakfast. He continues to lose weight. He is very happy with the results. He is taking high risk medication with benefit. He has not having any side effects. We will continue it for another month. documented in this encounter [facility] 02-04-2024 History of Presen t illness Narrative Images from the original note were not included. Subjective Patient ID: Godfrey Quintero is a 68 y.o. male. Scooter presents today for CV recheck. He has been having some left breast pain with palpation. He noticed it when he was taking a shower about 3 weeks ago. It only hurts when he manipulates it. There has been no discharge. He was on Lupron for prostate cancer but finished his therapy about 1-1/2 years ago. He had his labs done couple days ago and is here for results. He would also like to try phentermine again. He is motivated to lose weight now. Hypertension The following portions of the patient's history were reviewed and updated as appropriate: allergies, current medications, past family history, past medical history, past social history, past surgical history, problem list, and medication reconciliation was completed including current medication and post discharge medication. Review of Systems Constitutional: Negative. Eyes: Negative. Respiratory: Negative. Cardiovascular: Negative. Objective Physical Exam Constitutional: General: He is not in acute distress. HENT: Head: Normocephalic. Eyes: General: No scleral icterus. Extraocular Movements: Extraocular movements intact. Conjunctiva/sclera: Conjunctivae normal. Cardiovascular: Rate and Rhythm: Normal rate and regular rhythm. Pulses: Normal pulses. Heart sounds: Normal heart sounds. No murmur heard. Pulmonary: Effort: Pulmonary effort is normal. No respiratory distress. Breath sounds: Normal breath sounds. No wheezing or rhonchi. Chest: Chest wall: No mass. Breasts: Left: Tenderness present. No swelling, bleeding, inverted nipple, mass, nipple discharge or skin change. Musculoskeletal: Cervical back: Neck supple. Lymphadenopathy: Upper Body: Left upper body: No supraclavicular, axillary or pectoral adenopathy. Neurological: General: No focal deficit present. Mental Status: He is alert and oriented to person, place, and time. Psychiatric: Attention and Perception: Attention normal. Mood and Affect: Mood normal. Speech: Speech normal. Behavior: Behavior normal. Behavior is cooperative. Thought Content: Thought content normal. Cognition and Memory: Cognition normal. Judgment: Judgment normal. Assessment/Plan Scooter was seen today for hyperlipidemia and hypertension. Diagnoses and all orders for this visit: Essential (primary) hypertension Blood pressure at goal. Continue current regimen. CMP normal. Glucose slightly high but his A1c was great at 5.2%. He has known impaired fasting glucose. Hypercholesterolemia Lipids are great. Continue rosuvastatin 20 mg. Class 2 severe obesity due to excess calories with serious comorbidity and body mass index (BMI) of 38.0 to 38.9 in adult ([facility]) - phentermine 37.5 MG capsule; Take 1 capsule (37.5 mg total) by mouth every morning before breakfast. He is obese. He would benefit from weight loss. It is contributing to high blood pressure and high cholesterol. We discussed various medications and treatment strategies. He needs to incorporate some form of exercise into his daily routine. Will try phentermine 37.5 mg daily. Erectile dysfunction due to arterial insufficiency Okay to use Viagra as needed. Can lead to gynecomastia. Prostate cancer ([facility]) Follow-up with specialist as directed. Insomnia, unspecified type Continue melatonin. Breast tenderness in male May try ibuprofen prn. Monitor for changes. Other orders - melatonin 3 mg capsule; Take 3 mg by mouth nightly. documented in this encounter [facility] 02-01-2024 Miscellaneous Notes Amanda from scheduling called and there needs to be a new order for US retroperitoneal Complete since he waited a year. Looks like he had it done last year. A wait till he comes in for his appointment on and we can discuss it then Physician waiting till to discuss documented in this encounter [facility] 02-01-2024 Telephone encounter Note Amanda from scheduling called and there needs to be a new order for US retroperitoneal Complete since he waited a year. [facility] 02-01-2024 Telephone encounter Note Looks like he had it done last year. A wait till he comes in for his appointment on and we can discuss it then [facility] 02-01-2024 Telephone encounter Note Physician waiting till to discuss [facility] 01-05-2024 Miscellaneous Notes Pt has an upcoming apt and would like to have labs done at [facility] documented in this encounter [facility] 01-05-2024 Telephone encounter Note Pt has an upcoming apt and would like to have labs done at [facility] 01-05-2024 History of Presen t illness Narrative Subjective SUBJECTIVE: Patient ID: Godfrey Quintero is a 68 y.o. male who presents for a Medicare Annual Wellness exam. HPI The following portions of the patient's history were reviewed and updated as appropriate: allergies, current medications, past family history, past medical history, past social history, past surgical history and problem list. AWV FLOWSHEET : Lifestyle Assessment Do you smoke or use smokeless tobacco?: No If you smoke or use smokeless tobacco, are you ready to quit?: NA Are you exposed to secondhand smoke?: No On average, how many drinks of alcohol do you consume in a week?: (!) 6 - 9 Do you exercise for 30 or more minutes on average at least 3 days a week?: (!) Never Do you have any tooth, denture, or oral problems?: (!) Yes Do you snore or has anyone told you that you snore?: (!) Yes Do you try to eat a balanced diet?: Yes Do you experience leakage of urine, also known as urinary incontinence?: Never Do you have difficulty performing any of these activities? (check all that apply): None Do you have difficulty performing any of these activities? (check all that apply): None Fall Risk Fall Risk Assessment Completed?: Yes Have you fallen in the past year?: No How many times?: N/A Were you injured?: N/A Are you worried about falling?: No Do you feel unsteady when standing or walking?: No Risk Stratification: Low Risk Depression Screening Little interest or pleasure in doing things: Not at all Feeling down, depressed, or hopeless: Not at all Trouble falling or staying asleep, or sleeping too much: Not at all Feeling tired or having little energy: Not at all Poor appetite or overeating: Not at all Feeling bad about yourself - or that you are a failure or have let yourself or your family down: Not at all Trouble concentrating on things, such as reading the newspaper or watching television: Not at all Moving or speaking so slowly that other people could have noticed. Or the opposite - being so fidgety or restless that you have been moving around a lot more than usual: Not at all Thoughts that you would be better off , or of hurting yourself in some way: Not at all PEG Scale What number best describes your pain on average in the past week?: 0 - No pain What number best describes how, during the past week, pain has interfered with your enjoyment of life?: 0 - Does not interfere What number best describes how, during the past week, pain has interfered with your general activity?: 0 - Does not interfere PEG Pain Total Score: 0 Safety Assessment Do you have throw rugs on the floor?: No Do you feel safe at your home?: Yes Do you feel unsteady when walking?: No Are you having difficulty with driving?: No Do you have trouble seeing?: No What assistive device do you use? (check all that apply): None Hearing Assessment Do you strain or struggle to hear/understand conversations?: (!) Yes Do you have trouble hearing the television or radio when others do not?: No Does your family ever voice concerns about your hearing?: No Do you wear hearing aid/s?: No Personal Health During the past 4 weeks, how would you rate your overall health?: Good Do you understand how to take all of your medications?: Yes How confident are you that you can control and manage most of your health problems?: Very confident In the past 12 months, how many times have you been hospitalized?: None End of Life Planning Do you have a living will?: Yes Do you have a durable power of banking attorney?: (!) No Cognitive Screening Do you have trouble remembering or recalling facts or events?: No Do family members or caregivers report that you have difficulty remembering things?: No 6-Cit: Normal REVIEW OF SYSTEMS: Review of Systems Objective PHYSICAL EXAMINATION: Vitals: 01/05/24 1422 Weight: 124.7 kg (275 lb) Height: 180.3 cm (5' 11 ) Physical Exam Assessment/Plan ASSESSMENT/PLAN Encounter Diagnoses Name Primary? Medicare annual wellness visit, subsequent Yes Screening for depression Health maintenance discussed. Depression screen was negative. At least 3 minutes spent administering and discussing. Cognitive screen did not reveal any impairment. He has a living will but not power of banking attorney. He was encouraged to get in place. No lifestyle issues were identified. Return in about 1 year (around 01/04/2025). documented in this encounter [facility] 12-30-2022 Evaluation note Encounter Date Diagnosis Assessment Notes Dec, Obstructive sleep apnea (ICD-10 - G47.33) Fortunately the patient is using and benefiting from treatment. I encouraged him to use the machine every time he is asleep, and he says it is generally is not a problem. I encouraged him to increase sleep time, maybe by taking naps before going into work. He should use the machine then. When he does have the machine on it controls his sleep apnea beautifully. 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 The patient was reminded of the medical and accident risks associated with inadequate sleep time. For example, research has shown those getting five hours of sleep weigh about 30 pounds more than those getting 8 hours of sleep, and additionally have significantly higher risk of Alzheimer's disease (since amyloid plaque is broken down during sleep). Insufficient sleep obviously increases fatigue, but is also associated with significantly increased risk of work and driving accidents. The patient is encouraged to get adequate and regular sleep time. Dec, BMI 40.0-44.9, adult (ICD-10 - Z68.41) Weight reduction would be broadly beneficial for overall health, but would also have direct benefits on apnea severity and sleep quality. Even moderate weight reduction can affect JAX and snoring, and in some patients weight reduction can completely resolve sleep apnea Dec, Other Call if any questions or problems. Patient is advised to work on healthy diet choices and appropriate servings, weight control, regular exercise as directed, and reduce fat intake. Use machine regularly, and keep up with mask changes as needed. Call if problems with mask toleration, increased sleepiness, or poor response to treatment. . plista Other 04-05-2022 Evaluation note* Encounter Date Diagnosis Assessment Notes Treatment Notes Treatment Clinical Notes Dec, Obstructive sleep apnea (ICD-10 - G47.33) Fortunately the patient is using and benefiting from treatment, Though he does need to increase utilization overall. I reviewed his download with him in detail and he expresses understanding. Emphasized importance of getting to 4 hours each night, and maximizing utilization. He denies any specific problems with use, fortunately. His shiftwork patterns do pose problems at times, however. Encouraged him to use the machine every night, all night, entire time he is asleep. 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 Suggested 1 of 2 approaches: Better overlap of sleep cycles; or, supplemental naps with the machine. 1 approach would be to stay up on his days off until 4 AM and sleep till 11 or noon, and this would allow his circadian rhythm to adapt to daytime sleep more effectively. He might be able to sleep in later that way. The second approach would be to continue current patterns but add in a nap before going into work, of course with the machine on. Either way I encouraged him to use the machine anytime he is asleep for the entire time he is asleep Dec, BMI 40.0-44.9, adult (ICD-10 - Z68.41) Weight reduction was discussed and encouraged. He is currently not a good candidate for inspire therapy because of his body weight. I did discuss inspire, and explained the process, and reviewed the weight limit. Dec, Other Call if any questions or problems. Patient is advised to work on healthy diet choices and appropriate servings, weight control, regular exercise as directed, and reduce fat intake. Use machine regularly, and keep up with mask changes as needed. Call if problems with mask toleration, increased sleepiness, or poor response to treatment. . plista Other Evaluation noteNo assessment information available [facility] Work Phone: Evaluation note* Diagnosis Bilateral sensorineural hearing loss- Primary Sensorineural hearing loss, bilateral [facility] Essential (primary) hypertension Unspecified essential hypertension [facility] Diagnosis Hypercholesterolemia- Primary Pure hypercholesterolemia Primary hypertension Unspecified essential hypertension Impaired fasting glucose Encounter for screening for malignant neoplasm of prostate [facility] Diagnosis Medicare annual wellness visit, subsequent- Primary Screening for depression [facility] Diagnosis Ex-cigarette smoker- Primary Personal history of tobacco use, presenting hazards to health [facility] Diagnosis Essential (primary) hypertension- Primary Unspecified essential hypertension Hypercholesterolemia Pure hypercholesterolemia Class 2 severe obesity due to excess calories with serious comorbidity and body mass index (BMI) of 38.0 to 38.9 in adult ([facility]) Erectile dysfunction due to arterial insufficiency Prostate cancer ([facility]) Malignant neoplasm of prostate Insomnia, unspecified type Impaired fasting glucose Breast tenderness in male [facility] Diagnosis Class 2 severe obesity due to excess calories with serious comorbidity and body mass index (BMI) of 38.0 to 38.9 in adult ([facility])- Primary Mastodynia of left breast [facility] Diagnosis Breast tenderness in male- Primary [facility] Diagnosis Erectile dysfunction due to arterial insufficiency [facility] Diagnosis Class 2 severe obesity due to excess calories with serious comorbidity and body mass index (BMI) of 36.0 to 36.9 in adult ([facility]) [facility] Diagnosis Breast tenderness in male- Primary [facility] Diagnosis Class 2 severe obesity due to excess calories with serious comorbidity and body mass index (BMI) of 35.0 to 35.9 in adult ([facility])- Primary Encounter for screening for malignant neoplasm of prostate Essential (primary) hypertension Unspecified essential hypertension Prostate cancer ([facility]) Malignant neoplasm of prostate Meniere's disease, unspecified laterality [facility] Diagnosis Prostate cancer ([facility])- Primary Malignant neoplasm of prostate Encounter for screening for malignant neoplasm of prostate [facility] Diagnosis Asymmetrical sensorineural hearing loss- Primary Sensorineural hearing loss, asymmetrical Tinnitus, bilateral Unspecified tinnitus Dizziness Dizziness and giddiness documented in this encounter [facility]* Diagnosis Essential (primary) hypertension- Primary Unspecified essential hypertension Morbid obesity ([facility]) Morbid obesity Class 3 severe obesity due to excess calories with serious comorbidity and body mass index (BMI) of 40.0 to 44.9 in adult ([facility]) Obstructive sleep apnea syndrome Obstructive sleep apnea (adult) (pediatric) [facility] Diagnosis Sensorineural hearing loss (SNHL) of left ear with restricted hearing of right ear- Primary Left-sided tinnitus Unspecified tinnitus Active cochlear Meniere disease of left ear documented in this encounter [facility]* Diagnosis Sensorineural hearing loss (SNHL) of left ear with restricted hearing of right ear- Primary Anosmia Disturbances of sensation of smell and taste documented in this encounter [facility]* Diagnosis Morbid obesity ([facility]) Morbid obesity Prostate cancer ([facility]) Malignant neoplasm of prostate [facility] - Reported* Type Description Date Medical History HTN (hypertension) Medical History Hypercholesteremia Medical History JAX Surgical History knee surgery Surgical History left thigh as a child Surgical History right knee x2 Surgical History right shoulder Hospitalization History see above plista Other History general Narrative - Reported* Type Description Date Medical History HTN (hypertension) Medical History Hypercholesteremia Medical History JAX Medical History prostate cancer- radiation (28 t reatments) Surgical History knee surgery Surgical History left thigh as a child Surgical History right knee x2 Surgical History right shoulder Hospitalization History see above plista Other InstructionsNot on filedocumented in this [facility]ed [facility] filedocumented in [facility] filedocumented in [facility] filedocumented in [facility] filedocumented in this [facility] filedocumented in this [facility] filedocumented in this [facility] filedocumented in this [facility] filedocumented in this [facility] filedocumented in [facility] Summary Purpose Family History No Family History Records FoundNo Family History Records FoundNo Family History Records FoundNo Family History Records FoundNo Family History Records FoundNo Family History Records FoundNo Family History Records Found Advance Directives No Advanced Directives Records Found Advance Directive Response Recorded Date/ Time Advance Directives No May 15, 2020 1:41pm Chief Complaint and Reason for Visit Chief Complaint Sleep apnea 31-90 da y follow up Chief Complaint Sleep apnea annual f ollow up Reason for Referral Specialty Diagnoses / Procedures Referred By Conttrey t Referred To Contact Radiology Diagnoses Ex-cigarette smoker Procedures CT low dose lung screening (Annual) Herb De La Rosa, DO [address] [facility] [place] [address] Referral ID Status Reason Start Date Expiration Date V isits Requested Visits Authorized [id number] Pending Review 02/01/2024 01/31/2025 1 1 Additional Source Comments (unrecognized sect ion and content) No Status Records FoundNo Status Records FoundNo Status Records FoundNo Status Records FoundNo Status Records FoundNo Status Records FoundNo Status Records Found INFORMATION SOURCE (unrecogn ized section and content) DATE CREATED AUTHOR 11/16/2019 [facility] DATE CREATED AUTHOR 'S ORGANIZ ATION 05/25/2021 [facility] DATE CREATED AUTHOR AUTHOR'S ORGANIZ ATION 12/13/2021 [facility] DATE CREATED AUTHOR AUTHOR'S ORGANIZ ATION 01/03/2023 [facility] DATE CREATED AUTHOR AUTHOR'S ORGANIZ ATION 02/15/2024 [facility] DATE CREATED AUTHOR AUTHOR'S ORGANIZ ATION 12/21/2024 [facility] DATE CREATED AUTHOR AUTHOR'S ORGANIZ ATION 12/25/2024 [facility] Care Teams (unrecognized sec tion and content) Team Status: Active Member Role Status Dates Herb De La Rosa DO Primary Care Provider Active Team Status: Inactive Member Role Status Dates Herb De La Rosa DO Primary Care Provider Active Tarsha Gatica MD Attending Provider Active Sound Effects Supervisor Relationship Specialty Start Date End Date Rj Herb FabioDO [address] [place] [address] PCP - General Family Medicine 09/12/19 Nelida Gunn [facility] Nurse - [employer] 05/05/24 Sound Effects Supervisor Relationship Specialty Start Date End Date Herb De La Rosa DO [address] [place] [address] PCP - General Family Medicine 09/12/19 Nelida Gunn [facility] Nurse - [employer] 05/05/24 Sound Effects Supervisor Relationship Specialty Start Date End Date Herb De La Rosa DO [address] [place] [address] PCP - General Family Medicine 09/12/19 Nelida Gunn [facility] Nurse - [employer] 05/05/24 Sound Effects Supervisor Relationship Specialty Start Date End Date Herb De La Rosa DO [address] [place] [address] PCP - General Family Medicine 09/12/19 Jody Chang [facility] Nurse [facility] 03/02/24 Sound Effects Supervisor Relationship Specialty Start Date End Date Richard De La Rosasuleman Mccarthy [address], [place] [address] PCP - General Family Medicine 09/12/19 Sound Effects Supervisor Relationship Specialty Start Date End Date Herb De La Rosa DO [address], [place] [address] PCP - General Family Medicine 09/12/19 Sound Effects Supervisor Relationship Specialty Start Date End Date Herb De La Rosa DO [address], [place] [address] PCP - General Family Medicine 09/12/19 Sound Effects Supervisor Relationship Specialty Start Date End Date Herb De La Rosa DO [address], [place] [address] PCP - General Family Medicine 09/12/19 Sound Effects Supervisor Relationship Specialty Start Date End Date Herb De La Rosa DO [address] [place] [address] PCP - General Family Medicine 09/12/19 Sound Effects Supervisor Relationship Specialty Start Date End Date Herb De La Rosa DO [address] [place] [address] PCP - General Family Medicine 09/12/19 Sound Effects Supervisor Relationship Specialty Start Date End Date Herb De La Rosa DO [address], [place] [address] PCP - General Family Medicine 09/12/19 Jody Chang [facility] Nurse - [employer] 03/02/24 Sound Effects Supervisor Relationship Specialty Start Date End Date Herb De La Rosa DO [address], [place] [address] PCP - General Family Medicine 09/12/19 Jody Chang [facility] Nurse - [employer] 03/02/24 Sound Effects Supervisor Relationship Specialty Start Date End Date Herb De La Rosa DO [address], [place] [address] PCP - General Family Medicine 09/12/19 Jody Chang [facility] Nurse - [employer] 03/02/24 Sound Effects Supervisor Relationship Specialty Start Date End Date Herb De La Rosa DO [address], [place] [address] PCP - General Family Medicine 09/12/19 Jody Chang [facility] Nurse - [employer] 03/02/24 Sound Effects Supervisor Relationship Specialty Start Date End Date Herb De La Rosa DO [address], [place] [address] PCP - General Family Medicine 09/12/19 Nelida Gunn [facility] Nurse - [employer] 05/05/24 Sound Effects Supervisor Relationship Specialty Start Date End Date Herb De La Rosa DO [address], [place] [address] PCP - General Family Medicine 09/12/19 Nelida Gunn [facility] 05/05/24 Sound Effects Supervisor Relationship Specialty Start Date End Date Herb De La Rosa MD [address] [place] [address] PCP - General Family Medicine 09/19/24 Sound Effects Supervisor Relationship Specialty Start Date End Date Herb De La Rosa DO [address] [place] [address] PCP - General Family Medicine 09/12/19 Nelida Gunn [facility] Nurse [facility] 05/05/24 Sound Effects Supervisor Relationship Specialty Start Date End Date Herb De La Rosa MD [address] [place] [address] PCP - General Family Medicine 09/19/24 Sound Effects Supervisor Relationship Specialty Start Date End Date Herb De La Rosa MD [address] [place] [address] PCP - General Family Medicine 12/20/24 Sound Effects Supervisor Relationship Specialty Start Date End Date Herb De La Rosa MD [address] [place] [address] PCP - General Family Medicine 12/20/24 Sound Effects Supervisor Relationship Specialty Start Date End Date Herb De La Rosa MD [address] [place] [address] PCP - General Family Medicine 12/20/24 Sound Effects Supervisor Relationship Specialty Start Date End Date Herb De La Rosa DO [address], [place] [address] PCP - General Family Medicine 09/12/19 Gaviota Bennettulices [facility] Nurse - [facility] 12/20/24 Goals (unrecognized section and content) Goals may be documented in a n alternate sectionNo InformationGoals may be documented in an alternate sectionNo InformationNot on filedocumented as of this encounterNot on filedocumented as of this encounterNot on filedocumented as of this encounterNot on filedocumented as of this encounterNot on filedocumented as of this encounterNot on filedocumented as of this encounterNot on filedocumented as of this encounterNot on filedocumented as of this encounterNot on filedocumented as of this encounterNot on filedocumented as of this encounterNot on filedocumented as of this encounterNot on filedocumented as of this encounterNot on filedocumented as of this encounterNot on filedocumented as of this encounterNot on filedocumented as of this encounterNot on filedocumented as of this encounterNot on filedocumented as of this encounterNot on filedocumented as of this encounterNot on filedocumented as of this encounterNot on filedocumented as of this encounterNot on filedocumented as of this encounterNot on filedocumented as of this encounterNot on filedocumented as of this encounterNot on filedocumented as of this encounter Reason for Visit (unrecogniz ed section and content) Reason Onset Date Comments Left hearing aid 12/21/2024 Reason Comments Hearing Loss Follow up MRI [facility] Reason Comments Hearing Loss Audio 11/11/24 Specialty Diagnoses / Procedures Referred By Heriberto noe Referred To Contact Otolaryngology Diagnoses Bilateral sensorineural hearing loss Procedures 87 ([email or web address]) - Ambulatory referral to ENT (Non[facility]) Herb De La Rosa MD [address], [place] [address] Phone: tel: fax: Brooke Koehler MD [address] [facility] [address] [place] [address] Phone: tel: fax: Referral ID Status Reason Start Date Expiration Date Visits Re quested Visits Authorized [id number] Closed 09/12/2024 09/12/2025 1 1 Reason Comments Weight Check Reason Comments Weight Loss Reason Onset Date Comments Med Refill 03/31/2024 Reason Comments Follow-up Reason Comments Hyperlipidemia Hypertension Reason Comments medicare annual wellness Reason Comments Med Refill FOR RECORDS PERTAINING TO PATIENTS WHO ARE OR HAVE BEEN ENROLLED IN A CHEMICAL DEPENDENCY/SUBSTANCEABUSE PROGRAM, SOME INFORMATION MAY BE OMITTED. This clinical summary was aggregated from multiple sources. Caution should be exercised in using it in the provision of clinical care. This summary normalizes information from multiple sources, and as a consequence, information in this document may materially change the coding, format and clinical context of patient data. In addition, data may be omitted in some cases. CLINICAL DECISIONS SHOULD BE BASED ON THE PRIMARY CLINICAL RECORDS. [facility]. provides no warranty or guarantee of the accuracy or completeness of information in this document.
--- NOTE | 2025-01-03 19:02 | ED_ITS ---
HPI HPI - General Adult General Chief complaint: Headache Stated complaint: Headache Time Seen by Provider: 01/03/25 18:48 Source: patient Mode of arrival: walk-in Limitations: no limitations History of Present Illness HPI narrative: 69-year-old male presents to the emergency department with significant other with complaint of headache over the past 4 days. Locating pain generalized thro ughout the entire head. Describes as an aching, dull type of pain that has been fairly persistent. He has some mild light sensitivity. Has been taking ibuprofen without relief. Denies chronic history of headaches. Reports intermittent visual floaters. He does have chronic history of tinnitus for which he is being evaluated by otolaryngology. Denies any focal weakness, nausea, motor or sensory changes, paresthesias. Quality:?As above Severity:?Moderate Timing:?As above, constant Context: Normal setting and activity? Modifying factors:?as above Associated symptoms: as above Related Data Home Medications ?Medication ?Instructions ?Recorded ?Confirmed losartan 100 mg tablet 100 mg PO DAILY 04/21/24 01/03/25 phentermine 37.5 mg capsule 37.5 mg PO DAILY 04/21/24 01/03/25 rosuvastatin 20 mg tablet 20 mg PO DAILY 04/21/24 01/03/25 tamsulosin 0.4 mg capsule 0.4 mg PO BEDTIME 04/21/24 01/03/25 Previous Rx's ?Medication ?Instructions ?Recorded carbamide peroxide 6.5 % ear drops 5 drp otic (ear) BID 4 days #15 mL 04/21/24 (Debrox) [id number]-[id number] 250 1 tab PO Q6H PRN pain #14 tabs 01/03/25 mg-250 mg-65 mg tablet (Headache Relief ([id number])) Allergies Allergy/AdvReac Type Severity Reaction Status Date / Time No Known Drug Allergies Allergy Verified 04/21/24 05:45 Opioid HPI Opioid Management Most Recent Opioid Data: Last Pain Scale 7 01/03/25 18:53 01/03/25 Last ED Pain Assessment 01/03/25 18:53 Review of Systems ROS Narrative CONST: Denies fever, chills HENT: Denies congestion, sore throat EYES: + light sensitivity, visual disturbance RESP: Denies cough, shortness of breath CV: Denies chest pain, palpitations GI: Denies abd pain, nausea, vomiting : Denies dysuria, flank pain MS: Denies back pain, myalgias SKIN: Denies color change, rash NEURO: + headached. Denies dizziness, facial asymmetry, light-headedness, numbness, seizures, syncope, tremors, weakness PSYCHIATRIC: Denies confusion, agitation Exam Narrative Exam Narrative: Vital signs reviewed Nurses notes noted CONST: Nontoxic, well appearing, well nourished, in no distress.? No diaphoresis.?? HENT: normocephalic, atraumatic, moist mucous membrane, no abnormalities of the nose noted, hearing normal, no facial droop. No tenderness or pulsatory mass to the temporal region. Headache is not unilateral. EYES: PERRL, EOMI.? normal appearing conjunctiva, no apparent discharge bilat NECK: normal appearance CV: normal rate, regular rhythm, no murmur RESP: normal effort, speaking in complete sentences. Lung sounds clear and equal bilat.? No wheezes, rales, rhonchi GI: normal bowel sounds, soft, nontender, no distension : no CVA tenderness MS: no edema, injury SKIN: no pallor NEURO: A&Ox 3, GCS = 15, no sensory, motor deficits.? CN normal as tested. NIH = 0.? No abnormalities noted with coordination PSYCH: normal mood, affect.? Normal speech.? Memory intact Constitutional Vital Signs, click to edit/add: Last Vital Signs Temp 98.7 F 01/03/25 18:47 Pulse 81 01/03/25 20:50 Resp 18 01/03/25 18:47 BP 129/72 01/03/25 20:50 Pulse Ox 95 01/03/25 20:50 O2 Del Method Room Air 01/03/25 18:47 Course Reevaluation(s) Reevaluation #1: On reevaluation, patient reports resolution of the headache. Discussed with patient and significant other results, plan, and disposition. Patient and significant other are agreeable. Vital Signs Vital signs: Vital Signs Temperature 98.7 F 01/03/25 18:47 Pulse Rate 90 01/03/25 18:47 Respiratory Rate 18 01/03/25 18:47 Blood Pressure 141/86 01/03/25 18:47 Pulse Oximetry 97 01/03/25 18:47 Oxygen Delivery Method Room Air 01/03/25 18:47 Temperature 98.7 F 01/03/25 18:47 Pulse Rate 81 01/03/25 20:50 Respiratory Rate 18 01/03/25 18:47 Blood Pressure 129/72 01/03/25 20:50 Pulse Oximetry 95 01/03/25 20:50 Oxygen Delivery Method Room Air 01/03/25 18:47 Medical Decision Making MDM Narrative Medical decision making narrative: This is a pleasant 69-year-old male who presents to the emergency department for evaluation of headache. Has been persistent over the past 4 days. On arrival, afebrile, vital signs are stable Exam, nontoxic, well appearing patient in no distress. No focal findings. No deficits. Cranial nerves intact. Heart regular rate and rhythm. Lung sounds clear and equal bilaterally. Steady gait IV established, blood work was drawn and sent to the lab. He was given 1 L normal saline, Compazine, Benadryl, and Toradol Labs revealed no leukocytosis, anemia, thrombocytopenia, electrolyte imbalance, renal impairment. Glucose 129. Sed rate 14. C-reactive protein 0.64 CT head imaging, per radiologist reveals no acute Favor nonspecific cephalgia ICH less likely based on imaging Temporal arteritis less likely based on inflammatory markers, headache is not unilateral, no pulsatory or tenderness over the temporal regions History and Record Review Discussion with independent historian: Significant other Additional Tests and Interventions IV Fluids:hydration/inability to tolerate PO Re-Evaluation See ED course Disposition ? The patient was discharged. Prescriptions sent to pharmacy: Excedrin headache Plan: Patient will be discharged to home.? Condition at time of disposition: stable, improved.? Advised to follow up with referral provider, name and number placed on discharge paperwork. Advised to return for any worsening and/or development of new, concerning signs or symptoms PLEASE NOTE: Portions of the medical record may have been produced using electronic circle shear operator and may contain errors with respect to translation of words which may not have been identified prior to finalization of the chart. Medical Records Medical records reviewed: Yes I reviewed the patient's medical records Lab Data Lab results reviewed: Yes I reviewed the patient's lab results Labs: Lab Results 01/03/25 Range/Units 19:17 WBC 7.4 (4.0-11.0) 10^3/uL RBC 5.14 (4.70-6.10) 10^6/uL Hgb 15.9 (14.0-18.0) g/dL Hct 46.3 (42.0-54.0) % MCV 90.1 (80.0-94.0) fL MCH 30.9 (25.9-34.0) pg MCHC 34.3 (29.9-35.2) g/dL RDW 13.2 (11.0-15.0) % Plt Count 150 (150-450) 10^3/uL MPV 9.3 L (9.5-13.5) fL Neut % (Auto) 77.0 H (43.0-75.0) % Lymph % (Auto) 10.7 L (20.5-60.0) % [place] % (Auto) 7.7 (1.7-12.0) % Eos % (Auto) 3.0 (0.9-7.0) % Baso % (Auto) 0.5 (0.2-2.0) % Neut # (Auto) 5.7 (1.4-6.5) 10^3/uL Lymph # (Auto) 0.8 L (1.2-3.8) 10^3/uL [place] # (Auto) 0.6 (0.3-0.8) 10^3/uL Eos # (Auto) 0.2 (0.0-0.7) 10^3/uL Baso # (Auto) 0.0 (0.0-0.1) 10^3/uL Abs Immat Gran (auto) 0.08 H (0.00-0.03) 10^3/uL Imm/Tot Granulo (auto) 1.1 H (0.0-0.5) % ESR 14 (<=20) mm/hr Sodium 134 L (136-145) mmol/L Potassium 4.2 (3.5-5.1) mmol/L Chloride 102 (98-107) mmol/L Carbon Dioxide 27.9 (21.0-32.0) mmol/L Anion Gap 8.3 BUN 13.0 (7.0-18.0) mg/dL Creatinine 1.30 (0.70-1.30) mg/dL Est GFR ( Amer) >60 (>=60 mL/min/1.73m^2) Est GFR (Non-Af Amer) 55 L (>=60 mL/min/1.73m^2) BUN/Creatinine Ratio 10.0 Glucose 129 H (74-106) mg/dL Calcium 8.7 (8.5-10.1) mg/dL C-Reactive Protein 0.64 H (<=0.50) mg/dL Imaging Data CT scan - head: Attestation: I have reviewed the pertinent imaging results. Radiologist's impression: No acute intracranial hemorrhage Discharge Plan Discharge Chief Complaint: Headache Clinical Impression: Cephalgia Qualifiers: Headache type: unspecified Headache chronicity pattern: acute headache Intractability: not intractable Qualified Code(s): R51.9 - Headache, unspecified Patient Disposition: Home, Self-Care Time of Disposition Decision: 21:33 Condition: Good Mode of Transportation: Private Vehicle Prescriptions / Home Meds: New Headache Relief (NSZ-raqz-ypy) 250-250-65 mg tablet 1 tab PO Q6H PRN (Reason: pain) Qty: 14 0RF No Action tamsulosin 0.4 mg capsule 0.4 mg PO BEDTIME losartan 100 mg tablet 100 mg PO DAILY phentermine 37.5 mg capsule 37.5 mg PO DAILY rosuvastatin 20 mg tablet 20 mg PO DAILY Debrox 6.5 % drops 5 drp otic (ear) BID 4 Days Qty: 15 0RF Print Language: Singaporean Instructions: Acute Headache (ED) Referrals: Jeremias Giles DO [Physician] - 1 week
[2025-01-03] MEDS: DIPHENHYDRAMINE HCL 50 MG/ML VIAL 25 MG IVP (19:23)
[2025-01-03] MEDS: KETOROLAC TROMETHAMINE 30 MG/ML VIAL 15 MG IVP (19:24)
[2025-01-03] MEDS: 0.9 % SODIUM CHLORIDE 1,000 ML 999 ML IV (19:24)
[2025-01-03] MEDS: PROCHLORPERAZINE 10 MG/2 ML VIAL IV (19:24)
[2025-01-03 19:35] LABS: Basophils Percent Auto 0.5 % (0.2-2.0); Eosinophils Absolute Auto 0.2 10^3/uL (0.0-0.7); Hematocrit 46.3 % (42.0-54.0); Hemoglobin 15.9 g/dL (14.0-18.0); Immature Granulocytes Abs Auto 0.08 10^3/uL (0.00-0.03); Immature Granulocytes Pct Auto 1.1 % (0.0-0.5); Lymphocytes Absolute Auto 0.8 10^3/uL (1.2-3.8); Lymphocytes Percent Auto 10.7 % (20.5-60.0); Mean Corpuscular HGB Conc 34.3 g/dL (29.9-35.2); Mean Corpuscular Hemoglobin 30.9 pg (25.9-34.0); Mean Corpuscular Volume 90.1 fL (80.0-94.0); Mean Platelet Volume 9.3 fL (9.5-13.5); Monocytes Absolute Auto 0.6 10^3/uL (0.3-0.8); Monocytes Percent Auto 7.7 % (1.7-12.0); Neutrophils Absolute Auto 5.7 10^3/uL (1.4-6.5); Platelet Count 150 10^3/uL (150-450); Red Blood Count 5.14 10^6/uL (4.70-6.10); Red Cell Distribution Width 13.2 % (11.0-15.0); White Blood Count 7.4 10^3/uL (4.0-11.0)
[2025-01-03 19:46] LABS: Anion Gap 8.3; Calcium 8.7 mg/dL (8.5-10.1); Carbon Dioxide 27.9 mmol/L (21.0-32.0); Chloride 102 mmol/L (98-107); Estimated GFR (African America >60 (>=60 mL/min/1.73m^2); Estimated GFR (Non-African Ame 55 (>=60 mL/min/1.73m^2); Glucose 129 mg/dL (74-106); Potassium 4.2 mmol/L (3.5-5.1); Sodium 134 mmol/L (136-145)
[2025-01-03 19:47] LABS: Erythrocyte Sedimentation Rate 14 mm/hr (<=20)
[2025-01-03 19:55] LABS: C Reactive Protein 0.64 mg/dL (<=0.50)
[2025-01-03 20:50] VITALS: BP 129/72; PULSE 81; O2SAT 95
[2025-01-03 21:41] VITALS: BP 124/69; PULSE 84; O2SAT 95
== END 2025-01-03 21:46 | disposition home or self-care (01) ==
PROVIDERS: Physician Assistant; Emergency Provider Emergency Medicine; PCP Family Medicine
DX: R51.9 Headache, unspecified (principal)
CPT/HCPCS: 36415; 70450; 80048; 85025; 85652; 86140; 96374; 96375; 99285; J0780; J1200; J1885